=== PATIENT | female | born 1945 | race Caucasian/White ===

== ENCOUNTER 2021-01-11 07:56 | Observation (INO) ==
[2021-01-11] MEDS ORDERED: ACETAMINOPHEN 500 MG TAB PO STA (08:07)
[2021-01-11] MEDS ORDERED: oxyCODONE HCL IR 5 MG TAB (IMMEDIATE RELEASE) PO STA (08:07)
--- NOTE | 2021-01-11 08:15 | Emergency Department Note ---
Impression & Plan Fall, Compression fracture of L2 ED Provider Note NAME: BUD TAVERAS AGE: 75 SEX: F : 1945 ARRIVES VIA: Ambulance INFORMANT: Patient, ED PROVIDER(S): Cristino Brown MD CHIEF COMPLAINT: Fall, back pain HPI: This 75-year-old female who reports to the emergency department after losing her balance at home and falling to the ground. The patient reports she fell on her buttocks is complaining of low back pain as well as left hip pain. The patient reports she has a left hip replacement surgery that was performed in [place]. The patient's reports that he had to pick her up off the ground but that she did not hit her head. EMS reports that they did not give the patient anything but brought her to the emergency department. The patient describes the pain as an aching sensation with radiation into her hip. She reports standing on the hip makes the pain much worse however rest makes the pain better. She reports taking CBD oil prior to arrival for the pain with some improvement in her pain. ROS: See above HPI for pertinent positives & negatives. A total of 10 systems reviewed and were otherwise negative. PAST MEDICAL HISTORY: See Below PAST SURGICAL HISTORY: See Below FAMILY HISTORY: See Below SOCIAL HISTORY: See Below HOME MEDICATIONS: See Below ALLERGIES: See Below VITALS: See Below PHYSICAL EXAMINATION: VITAL SIGNS - Vital signs and nursing notes were reviewed. GENERAL - 75-year-old female appearing stated age who is in no acute distress. Communicates well with provider and answers questions appropriately. SKIN - Without rashes. HEAD - NC/AT. EYES - PERRL with EOMI bilaterally. Sclera anicteric. Palpebral conjunctiva pink and moist with no injection noted. EARS - No deformities of external structures noted on gross examination bilaterally. NOSE - Midline and without cyanosis. No epistaxis or purulent drainage noted. Septum midline without deviation or septal hematoma noted. MOUTH/OROPHARYNX - Without perioral cyanosis. Buccal mucosa pink and moist and without leukoplakia. Tongue midline with equal elevation of palate bilaterally. No tonsillar hypertrophy, erythema, or exudates noted. NECK - Neck with FROM. Supple to palpation. No nuchal rigidity. LUNGS - Chest wall symmetric without accessory muscle use, intercostals ret ractions, or central cyanosis. Normal vesicular breath sounds CTA B/L. No wheezes, rales, or rhonchi appreciated. CARDIAC - RRR with S1/S2. No murmur, rubs, or gallops appreciated. ABDOMEN - Abdominal contour without pulsations or visible masses. BS normoactive all four quadrants. No tenderness, palpable masses, hepatosplenomegaly, or ascites noted. EXTREMITIES - No clubbing or peripheral cyanosis. No pretibial edema present. +3/5 radial, posterior tibial, and dorsalis pedis pulses palpated throughout. +5/5 strength noted in UE/LE bilaterally. NEUROLOGIC - Cranial nerves II through XII grossly intact. Sensory intact to light touch throughout. Patellar reflexes +2/4. PSYCH - A&Ox3 and cooperates fully with examiner. Pt is very pleasant and interacts well with examiner. MEDICAL DECISION MAKING: Patient was seen and evaluated as above in room A12. Review was performed of nursing notes and vital signs. I did review pertinent previous visits and patient history. After obtaining a thorough history and physical examination the above work up was performed. This 75-year-old female who presents emergency department complaining of hip and back pain after a fall. Using shared medical decision making with the patient and her decision was made to send the patient for CAT scan of the lower spine as well as the pelvis. She was given oxycodone as well as Tylenol here for the pain. Repeat examination revealed improvement the patient's symptoms. However on attempting to get the patient up to ambulate her she had increasing pain in the back. They are requesting admission and perhaps a rehabilitation stay. I did discuss the case with case management who noted that the patient will need to be admitted to get her into rehab. I also did discuss the case with the orthopedic surgeon who was kind enough to see her the next day. I will note the patient does not have an elevation in her white blood cell count has a normal renal profile. She was discussed with the hospitalist service who did agree to meet the patient An order was placed for continuous cardiac monitoring. The monitor shows a rate of 54 with Sinus tamara rhythm. The patient was evaluated during a period of high volume and high acuity during the global COVID-19 pandemic, and that diagnosis was suspected/considered upon their initial presentation. Their evaluation, treatment and testing was consistent with current guidelines for patients who present with complaints or symptoms that may be related to COVID-19. Patient was seen while provider was wearing PPE. Triage Nursing notes reviewed. Prior medical records reviewed Vital Signs: reviewed and remarkable for no significant abnormalities Differential diagnosis: Fracture, subluxation, dislocation, contusion, ligamentous injury, neurovascular, compartment syndrome, rhabdomyolysis, as well as other pathologies. ER treatment provided: See below Diagnostics interpreted by me: ECG: EKG shows a sinus bradycardia possible left atrial enlargement left axis deviation no ST elevation or depression QTC is 427 ventricular rate is 48 no previous EKG available. Laboratory studies: As stated above and show below. Imaging studies: See below Consultation(s): ortho spine Int Medicine Past Med/Surg History Medical History (Updated 01/12/21 @ 16:37 by Cristino Brown MD) Anxiety Chronic back pain Degenerative disc disease GERD (gastroesophageal reflux disease) Hypothyroidism Irregular heart rate reason metoprolol Osteoarthritis Sleep apnea doesnt use CPAP as ordered Spinal stenosis Surgical History History of cardiac cath 2013 @ [place]--no stents History of section History of colonoscopy History of dilatation and curettage History of lumpectomy of right breast benign History of open reduction and internal fixation (ORIF) procedure clavicle fx--hardware removed History of total left hip replacement History of wisdom tooth extraction Family History Other Family history not known due to adoption Social History Smoking Status: Never smoker Second Hand Exposure: No; Do You Dip or Chew Tobacco: No; Tobacco Cessation Education Requested by Patient: No Hx Alcohol Use: Yes Alcohol type: wine and hard liquor Hx Substance Use: No Preferred Language: Hungarian Communication Ability: Effective Gauger Chief Delivery Required: No Beliefs That Will Affect Care: Episcopalian Episcopalian Beliefs: Hindu Current Living Situation: Spouse Other Information That Helps Us Care for You: No Feels Safe at Home: Yes Safety Concerns: Feels Safe At This Time Assistive Devices: Walker Allergies Allergies Allergy/AdvReac Type Severity Reaction Status Date / Time No Known Allergies Allergy Verified 01/11/21 08:55 Home Meds Home Medications Medication Instructions Recorded Confirmed acetaminophen 500 mg tablet 500 mg PO BID PRN 01/19/19 01/11/21 (Acetaminophen Extra Strength) ascorbic acid (vitamin C) 1,000 mg 1 g PO QAM 01/19/19 01/11/21 tablet (Vitamin C) cyclosporine 0.05 % eye drops in a 1 drp OPB AMPM 01/19/19 01/11/21 dropperette (Restasis) levothyroxine 100 mcg tablet 100 mcg PO QAM 01/19/19 01/11/21 loratadine 10 mg tablet 10 mg PO PM 01/19/19 01/11/21 metoprolol succinate 25 mg 12.5 mg PO PM 01/19/19 01/11/21 tablet,extended release 24 hr montelukast 10 mg tablet 10 mg PO PM 01/19/19 01/11/21 omega-3 360 bk-ofz-dej-fish oil 1 cap PO PM 01/19/19 01/11/21 1,200 mg capsule,delayed release (Fish Oil) sertraline 50 mg tablet 50 mg PO PM 01/19/19 01/11/21 vitamin B complex-folic acid 0.4 1 tab PO QAM 01/19/19 01/11/21 mg tablet (Super B Maxi Complex) omeprazole 10 mg capsule,delayed 10 mg PO QAM 01/30/19 01/11/21 release acetaminophen 650 mg 650 mg PO Q8H PRN 01/11/21 01/11/21 tablet,extended release (Tylenol 8 Hour) albuterol sulfate 90 mcg/actuation 1 puff INHALATION Q4H PRN 01/11/21 01/11/21 aerosol inhaler calcium carbonate 600 mg (1,500 1 cap PO QAM 01/11/21 01/11/21 mg)-vitamin D3 500 unit capsule (Calcium 600 with Vitamin D3) celecoxib 200 mg capsule 200 mg PO PM 01/11/21 01/11/21 coQ10 (ubiquinol) 200 mg capsule 200 mg PO PM 01/11/21 01/11/21 famotidine 20 mg tablet 20 mg PO QAM 01/11/21 01/11/21 magnesium 250 mg tablet 250 mg PO PM 01/11/21 01/11/21 mometasone 50 mcg/actuation nasal 2 spray INTRANASAL DAILY 01/11/21 01/11/21 spray naproxen sodium 220 mg tablet 220 mg PO PM PRN 01/11/21 01/11/21 (Aleve) turmeric 450 mg-turmeric root 1 cap PO QAM 01/11/21 01/11/21 extract 50 mg capsule valacyclovir 1 gram tablet 1,000 mg PO DIRECTED PRN 01/11/21 01/11/21 zinc 50 mg tablet 50 mg PO QAM 01/11/21 01/11/21 Results & Data (ED) Vital Signs Vital Signs - 24 hr 01/11/21 08:00 Temperature 36.8 C Temperature Source Oral Pulse Rate 54 L Respiratory Rate 16 Respiratory Effort / Characteristics Non-Labored Spontaneous Respiratory Depth Normal Respiratory Pattern Regular Blood Pressure 176/71 H Blood Pressure Mean 106 Blood Pressure Position Lying Pulse Oximetry 95 Oxygen Delivery Method Room Air Sepsis Recent Fever Within 48 Hours No Sepsis New/Unexplained Change in Mental Status No Sepsis Action Taken by Nursing No Action Required Home Medications Current Medication List: was personally reviewed by me Laboratory Data Attestation: I reviewed the patient's lab results. Result diagrams: 01/11/21 10:59 01/11/21 10:59 Administered Medications Acetaminophen (Acetaminophen 325 Mg Tab) 650 mg PO QID [facility] Stop: 02/10/21 12:59 Last Admin: 01/12/21 13:08 Dose: 650 mg Documented by: [id number] Admin: 01/12/21 08:39 Dose: 650 mg Documented by: [id number] Admin: 01/11/21 21:38 Dose: 650 mg Documented by: [id number] Admin: 01/11/21 17:01 Dose: 650 mg Documented by: [id number] Admin: 01/11/21 14:09 Dose: Not Given Documented by: [id number] Ascorbic Acid (Ascorbic Acid 500 Mg Tab) [facility] [place] Stop: 02/11/21 08:59 Last Admin: 01/12/21 08:39 Dose: 1,000 mg Documented by: [id number] Celecoxib (Celebrex 200 Mg Cap) 200 mg PO PM [facility] Stop: 02/10/21 20:59 Last Admin: 01/11/21 21:38 Dose: 200 mg Documented by: [id number] Diazepam (Diazepam 2 Mg Tablet) 2 mg PO TID PRN PRN Reason: Moderate pain Stop: 02/10/21 13:48 Last Admin: 01/12/21 03:44 Dose: 2 mg Documented by: [id number] Enoxaparin Sodium (Enoxaparin Inj 40 Mg/0.4 Ml Syr) 40 mg SQ QAM [facility] Stop: 02/11/21 08:59 Last Admin: 01/12/21 08:40 Dose: Not Given Documented by: [id number] Famotidine (Famotidine 20 Mg Tab) 20 mg PO QAM [facility] Stop: 02/10/21 13:48 Last Admin: 01/11/21 21:38 Dose: 20 mg Documented by: [id number] Admin: 01/11/21 16:28 Dose: Not Given Documented by: [id number] Fish Oil (Champion-3 (Purified Fish Oil) 1 Gm Cap) 1 gm PO PM [facility] Stop: 02/10/21 20:59 Last Admin: 01/11/21 21:38 Dose: 1 gm Documented by: [id number] Fluticasone Propionate (Fluticasone Propionate Na Spr 16 Gm Btl) 2 sprays NA DAILY [facility]; Protocol Stop: 02/11/21 08:59 Last Admin: 01/12/21 08:38 Dose: 2 sprays Documented by: [id number] Levothyroxine Sodium (Levothyroxine Sodium 100 Mcg Tablet) 100 mcg PO DAILYBB [facility] Stop: 02/11/21 06:29 Last Admin: 01/12/21 05:54 Dose: 100 mcg Documented by: [id number] Lidocaine (Lidocaine 5% 1 Patch) 1 patch TD [facility] Stop: 02/10/21 10:44 Last Admin: 01/12/21 09:09 Dose: 1 patch Documented by: [id number] Admin: 01/11/21 11:15 Dose: 1 patch Documented by: [id number] Loratadine (Loratadine 10 Mg Tab) 10 mg PO PM [facility] Stop: 02/10/21 20:59 Last Admin: 01/11/21 19:34 Dose: 10 mg Documented by: [id number] Magnesium Oxide (Magnesium Oxide 400 Mg Tab) 400 mg PO PM [facility]; Protocol Stop: 02/10/21 20:59 Last Admin: 01/11/21 21:38 Dose: 400 mg Documented by: [id number] Miscellaneous (Remove Lidoderm Patch) 1 ea N/A DAILY@2100 [facility] Stop: 02/10/21 20:59 Last Admin: 01/11/21 21:40 Dose: 1 ea Documented by: [id number] Miscellaneous (Restasis : Order Awaiting Action) 1 ea N/A QS [facility] Stop: 02/10/21 15:59 Last Admin: 01/12/21 15:52 Dose: Not Given Documented by: [id number] Admin: 01/12/21 08:30 Dose: Not Given Documented by: [id number] Admin: 01/11/21 23:37 Dose: Not Given Documented by: [id number] Admin: 01/11/21 16:58 Dose: Not Given Documented by: [id number] Montelukast Sodium (Montelukast Sodium 10 Mg Tablet) 10 mg PO PM [facility] Stop: 02/10/21 20:59 Last Admin: 01/11/21 19:34 Dose: 10 mg Documented by: [id number] Multivitamins/Minerals (Calcium 600mg + Vit D 400 Iu Tab) 1 tab PO QAM [facility] Stop: 02/11/21 08:59 Last Admin: 01/12/21 08:39 Dose: 1 tab Documented by: [id number] Oxycodone HCl (Oxycodone Hcl Ir 5 Mg Tab (Immediate Release)) 5 mg PO Q4H PRN PRN Reason: severe pain Stop: 01/25/21 13:48 Last Admin: 01/12/21 08:40 Dose: 5 mg Documented by: [id number] Admin: 01/11/21 18:28 Dose: 5 mg Documented by: [id number] Admin: 01/11/21 14:35 Dose: 5 mg Documented by: [id number] Pantoprazole Sodium (Pantoprazole 40 Mg Tab) 40 mg PO QAM [facility] Stop: 02/11/21 08:59 Last Admin: 01/12/21 05:54 Dose: 40 mg Documented by: [id number] Sertraline HCl (Sertraline Hcl 50 Mg Tablet) 50 mg PO PM [facility] Stop: 02/10/21 20:59 Last Admin: 01/11/21 19:34 Dose: 50 mg Documented by: [id number] Vitamin D (Cholecalciferol 1,000 Units 25 Mcg Tab) 2,000 units PO QAM [facility] Stop: 02/10/21 13:48 Last Admin: 01/12/21 08:39 Dose: 2,000 units Documented by: [id number] Admin: 01/11/21 16:28 Dose: Not Given Documented by: [id number] Discontinued Medications Acetaminophen (Acetaminophen 500 Mg Tab) 1,000 mg PO NOW STA Stop: 01/11/21 08:08 Last Admin: 01/11/21 08:15 Dose: 1,000 mg Documented by: [id number] Sodium Chloride (Nss 1000ml) 1,000 mls @ 80 mls/hr IV .[id number] [facility] Stop: 01/12/21 00:59 Last Infusion: 01/12/21 03:06 Dose: 0 mls/hr Documented by: [id number] Admin: 01/11/21 14:36 Dose: 80 mls/hr Documented by: [id number] Ondansetron HCl (Ondansetron Inj 2 Mg/Ml 2 Ml Vial) 4 mg IV NOW STA Stop: 01/11/21 10:34 Last Admin: 01/11/21 14:07 Dose: Not Given Documented by: [id number] Oxycodone HCl (Oxycodone Hcl Ir 5 Mg Tab (Immediate Release)) 5 mg PO NOW STA Stop: 01/11/21 08:08 Last Admin: 01/11/21 08:15 Dose: 5 mg Documented by: [id number] Imaging Data Radiologist's Impression: Lumbar Spine CT 01/11/21 08:[address] DOSE: HISTORY: Pt c/o low back pain s/p fall TECHNIQUE: Multiaxial CT images of the lumbar spine were performed and reformatted in the sagittal and coronal plane without the use of contrast. A dose lowering technique was utilized adhering to the principles of ALARA. COMPARISON: None. FINDINGS: There is an acute mild superior endplate compression fracture at L2 demonstrating up to 10% loss of height anteriorly. No associated retropulsion. No additional fractures within the lumbar spine. There is moderate to severe disc space narrowing at L3-L4. There are mild facet degenerative changes within the lower lumbar spine. The sacrum appears intact. Mild central canal narrowing at L4-L5 due to broad-based posterior disc bulge. Mild paravertebral edema at the L2 level secondary to the acute fracture. IMPRESSION: An acute mild superior endplate compression fracture at L2. No associated retropulsion. ACT 112: Negative or not required by law. Electronically signed by: Franck Campos M.D. 01/11/2021 9:[address] 01/11/21 08:07 CT pelvis wo con CLINICAL HISTORY: Left hip pain following fall. COMPARISON STUDY: No previous studies for comparison. TECHNIQUE: Axial images of the pelvis and hips were obtained without IV contrast. Sagittal and coronal reconstructions were viewed. Automated exposure control was utilized for the study. A dose lowering technique was utilized adhering to the principles of ALARA. FINDINGS: Alignment of the left hip arthroplasty is anatomic. There is no periprosthetic fracture. No acute fracture within the pelvis or hips is identified. No osseous lesion is noted. The sacroiliac joints and symphysis pubis are intact. No pelvic hematoma is noted. There is no pelvic lymphadenopathy. IMPRESSION: 1. No acute fracture within the pelvis or hips. 2. Intact left hip arthroplasty. No periprosthetic fracture. ACT 112: Negative or not required by law. Electronically signed by: Lyle Vargas M.D. 01/11/2021 9:52 AM Chest X-Ray 01/11/21 10:28 XR chest 1V portable HISTORY: Fall. weakness COMPARISON: None. FINDINGS: The cardiac silhouette is mildly enlarged. No focal lung consolidations to suggest pneumonia. No evidence for pulmonary edema. No pleural effusions. No pneumothorax. Mild diffuse interstitial thickening which is likely chronic. IMPRESSION: Mild cardiomegaly and mild chronic interstitial thickening. No acute process within the chest. ACT 112: Negative or not required by law. Electronically signed by: Franck Campos M.D. 01/11/2021 11:04 AM Discharge Plan Visit Data Chief Complaint: Fall Stated Complaint: FALL, LOWER BACK, BUTTOCKS & WRIST PAIN ED Provider: Cristino Brown Discharge Problem: Fall, Compression fracture of L2 Patient Disposition: Admitted As Inpatient Discharge Instructions Interventions: ED Discharge Assessment Last Done: 01/11/21 13:48 Discharge Problem: Fall Qualifiers: Encounter type: initial encounter Qualified Code(s): W19.XXXA - Unspecified fall, initial encounter Compression fracture of L2 Qualifiers: Encounter type: initial encounter Qualified Code(s): S32.020A - Wedge compression fracture of second lumbar vertebra, initial encounter for closed fracture
--- NOTE | 2021-01-11 09:30 | CT Scan Report ---
LUMBAR SPINE CT CT DOSE: HISTORY: Pt c/o low back pain s/p fall TECHNIQUE: Multiaxial CT images of the lumbar spine were performed and reformatted in the sagittal an d coronal plane without the use of contrast. A dose lowering technique was utilized adhering to the principles of ALARA. COMPARISON: None. FINDINGS: There is an acute mild superior endplate compression fracture at L2 demonstrating up to 10% loss of height anteriorly. No associated retropulsion. No additional fractures within the lumbar spi ne. There is moderate to severe disc space narrowing at L3-L4. There are mild facet degenerative luis ges within the lower lumbar spine. The sacrum appears intact. Mild central canal narrowing at L4-L5 d ue to broad-based posterior disc bulge. Mild paravertebral edema at the L2 level secondary to the acu te fracture. IMPRESSION: An acute mild superior endplate compression fracture at L2. No associated retropulsion. ACT 112: Negative or not required by law. Electronically signed by: Franck Campos M.D. 01/11/2021 9:28 AM
--- NOTE | 2021-01-11 09:53 | CT Scan Report ---
CT pelvis wo con CLINICAL HISTORY: Left hip pain following fall. COMPARISON STUDY: No previous studies for comparison. TECHNIQUE: Axial images of the pelvis and hips were obtained without IV contrast. Sagittal and ochoa l reconstructions were viewed. Automated exposure control was utilized for the study. A dose lowerin g technique was utilized adhering to the principles of ALARA. FINDINGS: Alignment of the left hip arthroplasty is anatomic. There is no periprosthetic fracture. No acute fracture within the pelvis or hips is identified. No osseous lesion is noted. The sacroiliac j oints and symphysis pubis are intact. No pelvic hematoma is noted. There is no pelvic lymphadenopathy . IMPRESSION: 1. No acute fracture within the pelvis or hips. 2. Intact left hip arthroplasty. No periprosthetic fracture. ACT 112: Negative or not required by law. Electronically signed by: Lyle Vargas M.D. 01/11/2021 9:52 AM
[2021-01-11] MEDS ORDERED: HYDROmorphone INJ 0.5 MG/0.5 ML SYR IV PRN (10:33)
[2021-01-11] MEDS ORDERED: ONDANSETRON INJ 2 MG/ML 2 ML VIAL IV STA (10:33)
--- NOTE | 2021-01-11 10:48 | History & Physical Report ---
Date of Service January 11, 2021 Assessment & Plan (1) Compression fracture of L2: (2) Fall: (3) Ambulatory dysfunction: (4) Lumbar spinal stenosis: Plan: This is a 75-year-old female who has significant past medical history of hypothyroidism, depression with anxiety, lumbar spinal stenosis, GERD, asthma, allergic rhinitis who presents to ED after sustaining fall at home. She states she lost her balance and fell to the ground. CT lumbar spine reveals an acute mild superior endplate compression fracture at L2 up to 10% loss of height anteriorly with mild paravertebral edema. Also noted on CT was mild central canal narrowing at L4-L5 due to broad-based posterior disc bulge. Pelvic CT reveals intact left hip replacement. Admit to medical Consult orthopedic spine Dr. Anderson Likely conservative management Consult PT/OT Consult case management to consider possible rehab Continue Celebrex for anti-inflammatory effect -patient takes this for arthritis which is currently much improved as she did not do well with other NSAIDs including ibuprofen Schedule acetaminophen 650 mg 4 times daily Oxycodone 5 mg every 4 hours as needed for severe pain; Valium 2 mg 3 times daily as needed for moderate pain Ice 3 times a day Lidocaine patch ordered (5) Sinus bradycardia: Plan: Patient is on 12.5 mg of metoprolol succinate She is currently asymptomatic Hold parameters in place (6) Hypothyroidism: Plan: Continue Synthroid (7) GERD (gastroesophageal reflux disease): Plan: Continue PPI and H2 freddy Dispo: Medical, consider rehab if ambulatory dysfunction persist despite pain control PCP: Pankaj FULL CODE Patient was seen and examined in collaboration with Dr. Alvarado, please see addendum History of Present Illness Chief Complaint: Fall prior to arrival Primary Care Provider: Omar Lira DO This is a 75-year-old female who has significant past medical history of hypothyroidism, depression with anxiety, lumbar spinal stenosis, GERD, asthma, allergic rhinitis who presents to ED after sustaining fall at home. She states she lost her balance and fell to the ground. She did not lose consciousness or hit her head. She reports falling on her buttocks and is complaining of low back and left hip pain. was unable to pick patient up off the ground and therefore EMS was summoned. She describes the pain as an ache with radiation to her hip. She denies any numbness or tingling or radicular symptoms. She did try CBD oil and ice prior to arrival with mild improvement of pain. Pain is improved at rest and made worse with standing. She denies any lightheadedness, dizziness, diaphoresis, nausea or palpitations prior to the fall. She further denies any recent fever, chills, sweats, chest pain, shortness with, cough, or symptoms, nausea, vomiting, abdominal pain. She denies any change in her bowel or urinary habits. Patient resides in [place] during the summer months but spends fall and aparicio between [place] and [place]. Her main residence is [place]. She does have a prior history of left hip replacement that was performed in [place]. In ED patient remained hemodynamically stable. CT of lumbar spine revealed an acute mild superior endplate compression fracture at L2 of approximately 10% loss of height anteriorly. Also noted on CT was mild central canal narrowing at L4-L5 due to a broad-based disc bulge. Mild acute paravertebral edema at the L2 level secondary to compression acute fracture but no associated retropulsion. Pelvis CT revealed an intact left hip arthroplasty with no periprosthetic fracture. No other acute abnormality in the hip. Allergies Allergy/AdvReac Type Severity Reaction Status Date / Time No Known Allergies Allergy Verified 01/11/21 08:55 Home Medications Medication Instructions Recorded Confirmed Type acetaminophen 500 mg tablet 500 mg PO BID PRN 01/19/19 01/11/21 History (Acetaminophen Extra Strength) ascorbic acid (vitamin C) 1,000 mg 1 g PO QAM 01/19/19 01/11/21 History tablet (Vitamin C) cyclosporine 0.05 % eye drops in a 1 drp OPB AMPM 01/19/19 01/11/21 History dropperette (Restasis) levothyroxine 100 mcg tablet 100 mcg PO QAM 01/19/19 01/11/21 History loratadine 10 mg tablet 10 mg PO PM 01/19/19 01/11/21 History metoprolol succinate 25 mg 12.5 mg PO PM 01/19/19 01/11/21 History tablet,extended release 24 hr montelukast 10 mg tablet 10 mg PO PM 01/19/19 01/11/21 History omega-3 360 rq-osu-rmo-fish oil 1 cap PO PM 01/19/19 01/11/21 History 1,200 mg capsule,delayed release (Fish Oil) sertraline 50 mg tablet 50 mg PO PM 01/19/19 01/11/21 History vitamin B complex-folic acid 0.4 1 tab PO QAM 01/19/19 01/11/21 History mg tablet (Super B Maxi Complex) omeprazole 10 mg capsule,delayed 10 mg PO QAM 01/30/19 01/11/21 History release acetaminophen 650 mg 650 mg PO Q8H PRN 01/11/21 01/11/21 History tablet,extended release (Tylenol 8 Hour) albuterol sulfate 90 mcg/actuation 1 puff INHALATION Q4H PRN 01/11/21 01/11/21 History aerosol inhaler calcium carbonate 600 mg (1,500 1 cap PO QAM 01/11/21 01/11/21 History mg)-vitamin D3 500 unit capsule (Calcium 600 with Vitamin D3) celecoxib 200 mg capsule 200 mg PO PM 01/11/21 01/11/21 History coQ10 (ubiquinol) 200 mg capsule 200 mg PO PM 01/11/21 01/11/21 History famotidine 20 mg tablet 20 mg PO QAM 01/11/21 01/11/21 History magnesium 250 mg tablet 250 mg PO PM 01/11/21 01/11/21 History mometasone 50 mcg/actuation nasal 2 spray INTRANASAL DAILY 01/11/21 01/11/21 History spray naproxen sodium 220 mg tablet 220 mg PO PM PRN 01/11/21 01/11/21 History (Aleve) turmeric 450 mg-turmeric root 1 cap PO QAM 01/11/21 01/11/21 History extract 50 mg capsule valacyclovir 1 gram tablet 1,000 mg PO DIRECTED PRN 01/11/21 01/11/21 History zinc 50 mg tablet 50 mg PO QAM 01/11/21 01/11/21 History oxycodone 5 mg tablet 5 mg PO Q12H PRN #10 tab 01/14/21 Rx Past Med/Surg History Medical History (Updated 01/15/21 @ 00:09 by Nicholas Webster) Anxiety Chronic back pain Compression fracture of L2 Degenerative disc disease Irregular heart rate reason metoprolol Osteoarthritis Sleep apnea doesnt use CPAP as ordered Spinal stenosis Surgical History History of cardiac cath 2013 @ [place]--no stents History of section History of colonoscopy History of dilatation and curettage History of lumpectomy of right breast benign History of open reduction and internal fixation (ORIF) procedure clavicle fx--hardware removed History of total left hip replacement History of wisdom tooth extraction Family History Other Family history not known due to adoption Social History Smoking Status: Never smoker Second Hand Exposure: No; Do You Dip or Chew Tobacco: No; Tobacco Cessation Education Requested by Patient: No Hx Alcohol Use: Yes Alcohol type: wine and hard liquor Hx Substance Use: No Preferred Language: Italian Communication Ability: Effective Hotbed Operator Required: No Beliefs That Will Affect Care: Protestant Protestant Beliefs: Rastafari Current Living Situation: Spouse Other Information That Helps Us Care for You: No Feels Safe at Home: Yes Safety Concerns: Feels Safe At This Time Assistive Devices: None and Brace/Splint/Immobilizer Review of Systems Review of Systems: All systems reviewed & are unremarkable except as noted in HPI & below Physical Exam Physical Exam: Constitutional: WD/WN, F, vitals as above, NAD, sitting up in bed, pleasant, conversing easily Head: Normocephalic, Atraumatic Eyes: PERRL, conjunctivae normal, anicteric sclerae ENMT: external ear and nose normal, oropharynx normal Neck: trachea midline, no thyromegaly normal visual inspection Respiratory: normal respiratory effort, lungs clear to auscultation, no wheeze, rales, rhonchi. Normal insp/exp effort, no accessory muscle use Cardiovascular: RRR, no murmur, no edema Vessels: no JVD or carotid bruit Chest: normal inspection of chest Abdomen: normal bowel sounds, soft, nontender, no hepatosplenomegaly Musculoskeletal: no cyanosis or clubbing, extremities motor strength 5/5 , pain to low back with straight leg raise b/l and plantar flexion of feet. pain to palpation of vertebral process of lower back Skin: no rashes, warm and dry normal turgor Neurologic: PERRL, EOMI, accommodation nl, no face palsy, no dysarthria CN's II-XI intact bilaterally and moves all extremities Psychiatric: A+Ox3, euthymic affect Lymphatic: no cervical or axillary lymphadenopathy : deferred Results & Data Results & Data ([facility]) Vital Signs (Past 12 Hours) Vital Signs Temp Pulse Pulse Resp BP BP Pulse Ox 01/11/21 08:56 52 L 16 130/70 92 01/11/21 08:00 36.8 C 54 L 16 176/71 H 95 Laboratory Results Short CBC 01/11/21 01/11/21 Range/Units 10:59 10:59 WBC 7.64 (4.8-10.8) K/uL Hgb 14.3 (12.0-16.0) g/dL Hct 43.5 (37-47) % Plt Count 242 (130-400) K/uL BUN 24 H (7-18) mg/dl BMP 01/11/21 10:59 Sodium 142 Potassium 4.0 Chloride 110 H Carbon Dioxide 32 BUN 24 H Creatinine 0.74 Glucose 85 Calcium 8.9 Liver Function 01/11/21 Range/Units 10:59 Total Bilirubin 0.7 (0.2-1) mg/dl AST 21 (15-37) U/L ALT 23 (12-78) U/L Alkaline Phosphatase 64 (45-117) U/L Albumin 3.6 (3.4-5.0) gm/dl Diagnostic Findings Lumbar Spine CT 01/11/21 08:[address] DOSE: HISTORY: Pt c/o low back pain s/p fall TECHNIQUE: Multiaxial CT images of the lumbar spine were performed and reformatted in the sagittal and coronal plane without the use of contrast. A dose lowering technique was utilized adhering to the principles of ALARA. COMPARISON: None. FINDINGS: There is an acute mild superior endplate compression fracture at L2 demonstrating up to 10% loss of height anteriorly. No associated retropulsion. No additional fractures within the lumbar spine. There is moderate to severe disc space narrowing at L3-L4. There are mild facet degenerative changes within the lower lumbar spine. The sacrum appears intact. Mild central canal narrowing at L4-L5 due to broad-based posterior disc bulge. Mild paravertebral edema at the L2 level secondary to the acute fracture. IMPRESSION: An acute mild superior endplate compression fracture at L2. No associated retropulsion. ACT 112: Negative or not required by law. Electronically signed by: Franck Campos M.D. 01/11/2021 9:[address] 01/11/21 08:07 CT pelvis wo con CLINICAL HISTORY: Left hip pain following fall. COMPARISON STUDY: No previous studies for comparison. TECHNIQUE: Axial images of the pelvis and hips were obtained without IV contrast. Sagittal and coronal reconstructions were viewed. Automated exposure control was utilized for the study. A dose lowering technique was utilized adhering to the principles of ALARA. FINDINGS: Alignment of the left hip arthroplasty is anatomic. There is no periprosthetic fracture. No acute fracture within the pelvis or hips is identified. No osseous lesion is noted. The sacroiliac joints and symphysis pubis are intact. No pelvic hematoma is noted. There is no pelvic lymphadenopath y. IMPRESSION: 1. No acute fracture within the pelvis or hips. 2. Intact left hip arthroplasty. No periprosthetic fracture. ACT 112: Negative or not required by law. Electronically signed by: Lyle Vargas M.D. 01/11/2021 9:52 AM Medications Administered Medication List Discontinued Medications Acetaminophen (Acetaminophen 500 Mg Tab) 1,000 mg PO NOW STA Stop: 01/11/21 08:08 Last Admin: 01/11/21 08:15 Dose: 1,000 mg Documented by: [id number] Oxycodone HCl (Oxycodone Hcl Ir 5 Mg Tab (Immediate Release)) 5 mg PO NOW STA Stop: 01/11/21 08:08 Last Admin: 01/11/21 08:15 Dose: 5 mg Documented by: [id number] ECG Rate (beats per minute): 48 Rhythm: sinus bradycardia COVID-19 Results Results COVID-19 Adm Lab Results: RBC 4.51 M/uL (4.2-5.4) 01/11/21 WBC 7.64 K/uL (4.8-10.8) 01/11/21 Hgb 14.3 g/dL (12.0-16.0) 01/11/21 Hct 43.5 % (37-47) 01/11/21 Plt Count 242 K/uL (130-400) 01/11/21 Neutrophils (%) (Auto) 79.6 % 01/11/21 Lymphocytes (%) (Auto) 12.2 % 01/11/21 Monocytes # (Auto) 0.51 K/uL (0.11-0.59) 01/11/21 Eosinophils # (Auto) 0.07 K/uL (0-0.5) 01/11/21 Immature Granulocyte % (Auto) 0.3 % 01/11/21 Neutrophils # (Auto) 6.09 K/uL (1.4-6.5) 01/11/21 Lymphocytes # (Auto) 0.93 K/uL (1.2-3.4) L 01/11/21 Monocytes # (Auto) 0.51 K/uL (0.11-0.59) 01/11/21 Eosinophils # (Auto) 0.07 K/uL (0-0.5) 01/11/21 Basophils # (Auto) 0.02 K/uL (0-0.2) 01/11/21 Immature Granulocyte # (Auto) 0.02 K/uL (0.00-0.02) 01/11/21 Na 142 mmol/L (136-145) 01/11/21 K 4.0 mmol/L (3.5-5.1) 01/11/21 Cl 110 mmol/L (98-107) H 01/11/21 CO2 32 mmol/L (21-32) 01/11/21 Anion Gap 0 (3-11) L 01/11/21 BUN 24 mg/dl (7-18) H 01/11/21 Creatinine 0.74 mg/dl (0.6-1.2) 01/11/21 BUN/Creatinine Ratio 32.0 (10-20) H 01/11/21 Glucose Level 85 mg/dl (70-99) 01/11/21 Ca 8.9 mg/dl (8.5-10.1) 01/11/21 Total Bilirubin 0.7 mg/dl (0.2-1) 01/11/21 AST/SGOT 21 U/L (15-37) 01/11/21 ALT/SGPT 23 U/L (12-78) 01/11/21 Alkaline Phosphatase 64 U/L (45-117) 01/11/21 Total Protein 6.9 gm/dl (6.4-8.2) 01/11/21 Albumin 3.6 gm/dl (3.4-5.0) 01/11/21 Globulin 3.3 gm/dl (2.5-4.0) 01/11/21 Albumin/Globulin Ratio 1.1 (0.9-2) 01/11/21 COVID-19 PCR NEGATIVE (Negative) 01/11/21 Chest X-Ray 01/11/21 Code Status & VTE Plan Code Status Full code VTE Prophylaxis Plan VTE Prophylaxis will be ordered: Yes Supervising Physician Co-Signing Physician Notes Pt was seen and examined. Agreed with Helga MORENO exam, assessment and Plan. 75-year-old female who has significant past medical history of hypothyroidism, depression with anxiety, lumbar spinal stenosis, GERD, asthma, allergic rhinitis present to the ER after sustaining fall at home. Pt said that she lost her balance and fell to the ground. She did not lose consciousness or hit her head. she said that she could not get up from the floor due to excruciate pain. had to call EMS. She said that she has been having excruciating pain mostly when sitting on her butt or when walking. Denies any lightheadedness, dizziness, diaphoresis, nausea, chills, sweats, chest pain, shortness with, co ugh, or symptoms, nausea, vomiting, abdominal pain or palpitations prior to the fall. CT of lumbar spine done in the ER revealed an acute mild superior endplate compression fracture at L2 of approximately 10% loss of height anteriorly; and mild central canal narrowing at L4-L5 due to a broad-based disc bulge. Mild acute paravertebral edema at the L2 level secondary to compression acute fracture but no associated retropulsion. Continue pain Control. Ortho Consult. PT/OT eval. Fall precaution. MD Christiano
--- NOTE | 2021-01-11 11:05 | XRay Report ---
XR chest 1V portable HISTORY: Fall. weakness COMPARISON: None. FINDINGS: The cardiac silhouette is mildly enlarged. No focal lung consolidations to suggest pneumoni a. No evidence for pulmonary edema. No pleural effusions. No pneumothorax. Mild diffuse interstitial thickening which is likely chronic. IMPRESSION: Mild cardiomegaly and mild chronic interstitial thickening. No acute process within the chest. ACT 112: Negative or not required by law. Electronically signed by: Franck Campos M.D. 01/11/2021 11:04 AM
[2021-01-11 11:08] LABS: Basophils # (auto) 0.02 K/uL (0-0.2); Basophils % (auto) 0.3 %; Eosinophils # (auto) 0.07 K/uL (0-0.5); Eosinophils % (auto) 0.9 %; Hematocrit (blood only) 43.5 % (37-47); Hemoglobin 14.3 g/dL (12.0-16.0); Immature Granulocytes # (auto) 0.02 K/uL (0.00-0.02); Immature Granulocytes % (auto) 0.3 %; Lymphocytes # (auto) 0.93 K/uL (1.2-3.4); Lymphocytes % (auto) 12.2 %; Mean Corpuscular Hemoglobin 31.7 pg (25-34); Mean Corpuscular Hgb Conc 32.9 g/dL (32-36); Mean Corpuscular Volume 96.5 fL (80-100); Monocytes # (auto) 0.51 K/uL (0.11-0.59); Monocytes % (auto) 6.7 %; Neutrophils # (auto) 6.09 K/uL (1.4-6.5); Neutrophils % (auto) 79.6 %; Platelet Count 242 K/uL (130-400); RDW Coefficient of Variation 13.3 % (11.5-14.5); RDW Standard Deviation 46.9 fL (36.4-46.3); Red Blood Count 4.51 M/uL (4.2-5.4); White Blood Count 7.64 K/uL (4.8-10.8)
[2021-01-11] MEDS: LIDOCAINE 5% 1 PATCH TD SCH (11:15)
[2021-01-11 11:27] LABS: Albumin Level 3.6 gm/dl (3.4-5.0); Calcium 8.9 mg/dl (8.5-10.1); Est GFR (African American) 91.2 ml/min; Est GFR (Non-African American) 78.7 ml/min
[2021-01-11 11:37] LABS: Albumin Globulin Ratio 1.1 (0.9-2); Bilirubin,Total 0.7 mg/dl (0.2-1); Globulin 3.3 gm/dl (2.5-4.0); Thyroid Stimulating Hormone 3.11 uIu/ml (0.300-4.500); Total Protein 6.9 gm/dl (6.4-8.2)
[2021-01-11] MEDS ORDERED: SODIUM CHLORIDE 0.9% 1000ML 1,000 ML IV SCH (12:30)
[2021-01-11 13:02] LABS: Appearance Urine Clear (Clear); Bacteria Urine Automated Negative (Negative); Bilirubin Urine Negative (Negative); Blood Urine Negative (Negative); Color Urine Yellow; Glucose Urine UA Negative (Negative); Ketones Urine Negative (Negative); Leukocyte Esterase Urine Trace (Negative); Nitrite Urine Negative (Negative); Protein Urine Negative (Negative); RBC Urine Automated 0-4 /hpf (0-4); Specific Gravity Urine 1.013 (1.000-1.030); Urobilinogen Urine Negative (Negative); pH Urine 7.5 (4.5-7.5)
[2021-01-11] MEDS ORDERED: MAGNESIUM HYDROXIDE SUSP 30 ML UDC PO PRN (13:49)
[2021-01-11] MEDS ORDERED: ACETAMINOPHEN 325 MG TAB PO PRN (13:49)
[2021-01-11] MEDS ORDERED: ONDANSETRON INJ 2 MG/ML 2 ML VIAL IV PRN (13:49)
[2021-01-11] MEDS ORDERED: diazePAM 2 MG TABLET PO PRN (13:49)
[2021-01-11] MEDS ORDERED: ALBUTEROL HFA 8 GM INHALER INH PRN (13:49)
[2021-01-11] MEDS ORDERED: ALUMINUM/MAGNESIUM SUSP 30 ML UDC PO PRN (13:49)
[2021-01-11] MEDS: ACETAMINOPHEN 325 MG TAB PO SCH ×3 (14:09→21:38)
[2021-01-11] MEDS: oxyCODONE HCL IR 5 MG TAB (IMMEDIATE RELEASE) PO PRN ×2 (14:35→18:28)
[2021-01-11] MEDS: FAMOTIDINE 20 MG TAB PO SCH ×2 (16:28→21:38)
[2021-01-11] MEDS: CHOLECALCIFEROL 1,000 UNITS 25 MCG TAB PO SCH (16:28)
--- NOTE | 2021-01-11 17:12 | Electrocardiogram Report ---
Test Reason : Blood Pressure : / mmHG Vent. Rate : 048 BPM Atrial Rate : 048 BPM P-R Int : 204 ms QRS Dur : 086 ms QT Int : 478 ms P-R-T Axes : 071 -32 054 degrees QTc Int : 427 ms Sinus bradycardia Possible Left atrial enlargement Left axis deviation Poor R wave progression, consider anterior MT vs. lead placement vs. LVH Abnormal ECG No previous ECGs available Confirmed by Manny Freeman ([id number]) on 01/11/2021 5:12:07 PM Referred By: REFERRED SELF Confirmed By:Jim Freeman
[2021-01-11] MEDS: SERTRALINE HCL 50 MG TABLET PO SCH (19:34)
[2021-01-11] MEDS: MONTELUKAST SODIUM 10 MG TABLET PO SCH (19:34)
[2021-01-11] MEDS: LORATADINE 10 MG TAB PO SCH (19:34)
[2021-01-11] MEDS ORDERED: PANTOprazole 40 MG TAB PO SCH (21:00)
[2021-01-11] MEDS ORDERED: NON-FORMULARY MEDICATION (Coq10 (Ubiquinol) 200 mg Capsule) PO SCH (21:00)
[2021-01-11] MEDS ORDERED: METOPROLOL SUCC 25MG EXT REL TAB PO SCH (21:00)
[2021-01-11] MEDS: CeleBREX 200 MG CAP PO SCH (21:38)
[2021-01-11] MEDS: MAGNESIUM OXIDE 400 MG TAB PO SCH (21:38)
[2021-01-11] MEDS: OMEGA-3 (PURIFIED FISH OIL) 1 GM CAP PO SCH (21:38)
[2021-01-12] MEDS: LEVOTHYROXINE SODIUM 100 MCG TABLET PO SCH (05:54)
[2021-01-12] MEDS: PANTOprazole 40 MG TAB PO SCH (05:54)
--- NOTE | 2021-01-12 08:04 | Orthopedic Consultation ---
Date of Consultation January 12, 2021 Assessment & Plan (1) Compression fracture of L2: CAT scan does demonstrate superior endplate fracture of L2 with evidence of spinal stenosis most impressive at L4-L5. This point her axial back symptoms seem to be controlled. I will order an LSO brace for her to wear when out of bed and ambulating. I discussed with her treatment plan of light activity lifting no more than 5 pounds using her brace when ambulating. If she fails to respond gutiérrez over the next several days and the pain continues or worsens she may ultimately be a candidate for kyphoplasty. I have discussed this procedure with her. Again I believe there is a 90% chance she will heal without any surgical intervention. History of Present Illness Reason for Consultation: L2 compression fracture Attending Physician: Jayson Alvarado MD History of Present Illness This is a very pleasant 75-year-old female that presents after a fall at home. She has sustained an L2 compression fracture. This morning she states her pain has improved. She was able to get in and out of bed yesterday and use the restroom with assistance. She denies any leg pain numbness or tingling to lower extremities. Again she is comfortable this morning upon our discussion. Allergies Allergy/AdvReac Type Severity Reaction Status Date / Time No Known Allergies Allergy Verified 01/11/21 08:55 Home Medications Medication Instructions Recorded Confirmed Type acetaminophen 500 mg tablet 500 mg PO BID PRN 01/19/19 01/11/21 History (Acetaminophen Extra Strength) ascorbic acid (vitamin C) 1,000 mg 1 g PO QAM 01/19/19 01/11/21 History tablet (Vitamin C) cyclosporine 0.05 % eye drops in a 1 drp OPB AMPM 01/19/19 01/11/21 History dropperette (Restasis) levothyroxine 100 mcg tablet 100 mcg PO QAM 01/19/19 01/11/21 History loratadine 10 mg tablet 10 mg PO PM 01/19/19 01/11/21 History metoprolol succinate 25 mg 12.5 mg PO PM 01/19/19 01/11/21 History tablet,extended release 24 hr montelukast 10 mg tablet 10 mg PO PM 01/19/19 01/11/21 History omega-3 360 zj-hvq-tgo-fish oil 1 cap PO PM 01/19/19 01/11/21 History 1,200 mg capsule,delayed release (Fish Oil) sertraline 50 mg tablet 50 mg PO PM 01/19/19 01/11/21 History vitamin B complex-folic acid 0.4 1 tab PO QAM 01/19/19 01/11/21 History mg tablet (Super B Maxi Complex) omeprazole 10 mg capsule,delayed 10 mg PO QAM 01/30/19 01/11/21 History release acetaminophen 650 mg 650 mg PO Q8H PRN 01/11/21 01/11/21 History tablet,extended release (Tylenol 8 Hour) albuterol sulfate 90 mcg/actuation 1 puff INHALATION Q4H PRN 01/11/21 01/11/21 History aerosol inhaler calcium carbonate 600 mg (1,500 1 cap PO QAM 01/11/21 01/11/21 History mg)-vitamin D3 500 unit capsule (Calcium 600 with Vitamin D3) celecoxib 200 mg capsule 200 mg PO PM 01/11/21 01/11/21 History coQ10 (ubiquinol) 200 mg capsule 200 mg PO PM 01/11/21 01/11/21 History famotidine 20 mg tablet 20 mg PO QAM 01/11/21 01/11/21 History magnesium 250 mg tablet 250 mg PO PM 01/11/21 01/11/21 History mometasone 50 mcg/actuation nasal 2 spray INTRANASAL DAILY 01/11/21 01/11/21 History spray naproxen sodium 220 mg tablet 220 mg PO PM PRN 01/11/21 01/11/21 History (Aleve) turmeric 450 mg-turmeric root 1 cap PO QAM 01/11/21 01/11/21 History extract 50 mg capsule valacyclovir 1 gram tablet 1,000 mg PO DIRECTED PRN 01/11/21 01/11/21 History zinc 50 mg tablet 50 mg PO QAM 01/11/21 01/11/21 History Patient History Medical History (Updated 01/11/21 @ 12:24 by Helga Tse PA-C) Anxiety Chronic back pain Degenerative disc disease GERD (gastroesophageal reflux disease) Hypothyroidism Irregular heart rate reason metoprolol Osteoarthritis Sleep apnea doesnt use CPAP as ordered Spinal stenosis Surgical History History of cardiac cath 2014 @ [place]--no stents History of section History of colonoscopy History of dilatation and curettage History of lumpectomy of right breast benign History of open reduction and internal fixation (ORIF) procedure clavicle fx--hardware removed History of total left hip replacement History of wisdom tooth extraction Family History Other Family history not known due to adoption Social History Smoking Status: Never smoker Second Hand Exposure: No; Do You Dip or Chew Tobacco: No; Tobacco Cessation Education Requested by Patient: No Hx Alcohol Use: Yes Alcohol type: wine and hard liquor Hx Substance Use: No Preferred Language: Niuean Communication Ability: Effective Propulsion Engineer Required: No Beliefs That Will Affect Care: Restoration Restoration Beliefs: Mu-ism Current Living Situation: Spouse Other Information That Helps Us Care for You: No Feels Safe at Home: Yes Safety Concerns: Feels Safe At This Time Assistive Devices: Walker Physical Exam Physical Exam: Patient appears comfortable. She has good strength testing to the lower extremities. Sensory symmetric and intact. Results & Data ([facility]) Vital Signs (Past 12 Hours) Vital Signs Temp Pulse Resp BP Pulse Ox 01/12/21 07:42 36.8 C 49 L 14 116/59 L 93 01/11/21 22:53 36.5 C 45 L 14 138/70 94
[2021-01-12] MEDS: FLUTICASONE PROPIONATE NA SPR 16 GM BTL SCH (08:38)
[2021-01-12] MEDS: CALCIUM 600MG + VIT D 400 IU TAB PO SCH (08:39)
[2021-01-12] MEDS: CHOLECALCIFEROL 1,000 UNITS 25 MCG TAB PO SCH (08:39)
[2021-01-12] MEDS: ASCORBIC ACID 500 MG TAB PO SCH (08:39)
[2021-01-12] MEDS: ACETAMINOPHEN 325 MG TAB PO SCH ×4 (08:39→22:09)
[2021-01-12] MEDS: oxyCODONE HCL IR 5 MG TAB (IMMEDIATE RELEASE) PO PRN ×2 (08:40→16:48)
[2021-01-12] MEDS: ENOXAPARIN INJ 40 MG/0.4 ML SYR SQ SCH (08:40)
[2021-01-12] MEDS ORDERED: LIDOCAINE 5% 1 PATCH TD SCH (09:00)
[2021-01-12] MEDS: LIDOCAINE 5% 1 PATCH TD SCH (09:09)
[2021-01-12] MEDS: CeleBREX 200 MG CAP PO SCH (19:46)
[2021-01-12] MEDS: OMEGA-3 (PURIFIED FISH OIL) 1 GM CAP PO SCH (19:46)
[2021-01-12] MEDS: SERTRALINE HCL 50 MG TABLET PO SCH (19:47)
[2021-01-12] MEDS: LORATADINE 10 MG TAB PO SCH (19:47)
[2021-01-12] MEDS: MONTELUKAST SODIUM 10 MG TABLET PO SCH (19:47)
[2021-01-12] MEDS: MAGNESIUM OXIDE 400 MG TAB PO SCH (19:47)
[2021-01-12] MEDS: POLYETHYLENE (MIRALAX) 17 GM PACK PO PRN (19:58)
--- NOTE | 2021-01-12 23:33 | Hospitalist Progress Note ---
Date of Service January 12, 2021 Assessment & Plan (1) Compression fracture of L2: (2) Fall: (3) Ambulatory dysfunction: (4) Lumbar spinal stenosis: Plan: This is a 75-year-old female who has significant past medical history of hypothyroidism, depression with anxiety, lumbar spinal stenosis, GERD, asthma, allergic rhinitis who presents to ED after sustaining fall at home. She states she lost her balance and fell to the ground. Present on admission with worsening back pain CT lumbar spine reveals an acute mild superior endplate compression fracture at L2 up to 10% loss of height anteriorly with mild paravertebral edema. Also noted on CT was mild central canal narrowing at L4-L5 due to broad-based posterior disc bulge. Pelvic CT reveals intact left hip replacement. Continue pain control with Oxycodone, Lidocaine patch, Celebrex and Tylenol Orthopedic spine Dr. Anderson consulted LSO brace for her to wear when out of bed and ambulating. Continue light activity and no lifting more than 5 lbs if no improvement and pain worsening in the next few days, might be a candidate for kyphoplasty. No surgical intervention currently Continue PT/OT eval Continue to monitor (5) Sinus bradycardia: Plan: Patient is on 12.5 mg of metoprolol succinate She is currently asymptomatic Hold parameters in place (6) Hypothyroidism: Plan: Continue Synthroid (7) GERD (gastroesophageal reflux disease): Plan: Continue PPI and H2 freddy Dispo: Medical, consider rehab if ambulatory dysfunction persist despite pain control PCP: Pankaj FULL CODE Admission and Anticipated Discharge Date Admission Date: January 11, 2021 Subjective Pt was seen and examined Lying in bed with no distress Pt said that her pain seems to get a little better She said that coughing and deep breathing cause more pain She said that pain improved with standing denies any chest pain, palpitation and SOB Physical Exam Physical Exam: General- No acute distress Head- atraumatic Eyes- PERRL, EOMI, ENT- oropharynx clear Neck- supple, no JVD Lungs- clear to auscultation Heart- regular rhythm; no murmur Abdomen- normal bowel sounds, soft, nontender Extremities- no calf tenderness Neuro- alert, oriented x 3; PERRL, EOMI; no facial palsy; no dysarthria Skin- warm & dry Results & Data Results & Data ([facility]) Vital Signs (Past 12 Hours) Vital Signs Temp Pulse Resp BP BP Pulse Ox 07/15/21 22:21 36.7 C 50 L 16 138/72 91 01/12/21 15:23 36.5 C 51 L 16 125/72 95 (1) Compression fracture of L2 Encounter type: initial encounter Qualified Code(s): S32.020A - Wedge compression fracture of second lumbar vertebra, initial encounter for closed fracture (2) Fall Encounter type: initial encounter Qualified Code(s): W19.XXXA - Unspecified fall, initial encounter
[2021-01-13] MEDS: LEVOTHYROXINE SODIUM 100 MCG TABLET PO SCH (06:03)
[2021-01-13] MEDS: PANTOprazole 40 MG TAB PO SCH (06:03)
[2021-01-13] MEDS: oxyCODONE HCL IR 5 MG TAB (IMMEDIATE RELEASE) PO PRN ×2 (06:12→22:28)
[2021-01-13] MEDS: FLUTICASONE PROPIONATE NA SPR 16 GM BTL SCH (08:46)
[2021-01-13] MEDS: ACETAMINOPHEN 325 MG TAB PO SCH ×4 (08:47→20:13)
[2021-01-13] MEDS: CALCIUM 600MG + VIT D 400 IU TAB PO SCH (08:47)
[2021-01-13] MEDS: ASCORBIC ACID 500 MG TAB PO SCH (08:47)
[2021-01-13] MEDS: ENOXAPARIN INJ 40 MG/0.4 ML SYR SQ SCH ×2 (08:47→10:41)
[2021-01-13] MEDS: CHOLECALCIFEROL 1,000 UNITS 25 MCG TAB PO SCH (08:47)
[2021-01-13] MEDS: FAMOTIDINE 20 MG TAB PO SCH (08:47)
[2021-01-13] MEDS: LIDOCAINE 5% 1 PATCH TD SCH (10:41)
--- NOTE | 2021-01-13 17:29 | Hospitalist Progress Note ---
Date of Service January 13, 2021 Assessment & Plan (1) Compression fracture of L2: (2) Fall: (3) Ambulatory dysfunction: (4) Lumbar spinal stenosis: Plan: This is a 75-year-old female who has significant past medical history of hypothyroidism, depression with anxiety, lumbar spinal stenosis, GERD, asthma, allergic rhinitis who presents to ED after sustaining fall at home. She states she lost her balance and fell to the ground. Present on admission with worsening back pain CT lumbar spine reveals an acute mild superior endplate compression fracture at L2 up to 10% loss of height anteriorly with mild paravertebral edema. Also noted on CT was mild central canal narrowing at L4-L5 due to broad-based posterior disc bulge. Pelvic CT reveals intact left hip replacement. Continue pain control with Oxycodone, Lidocaine patch, Celebrex and Tylenol Orthopedic spine Dr. Anderson consulted LSO brace for her to wear when out of bed and ambulating. Continue light activity and no lifting more than 5 lbs if no improvement and pain worsening in the next few days, might be a candidate for kyphoplasty. No surgical intervention currently Pain clinically improved Continue PT/OT eval Will need to follow-up with orthopedic outpatient (5) Sinus bradycardia: Plan: Patient is on 12.5 mg of metoprolol succinate She is currently asymptomatic Hold parameters in place (6) Hypothyroidism: Plan: Continue Synthroid (7) GERD (gastroesophageal reflux disease): Plan: Continue PPI and H2 freddy Dispo: Medical, consider rehab if ambulatory dysfunction persist despite pain control Plan to discharge home tomorrow if pain continues to improve PCP: Pankaj FULL CODE Admission and Anticipated Discharge Date Admission Date: January 11, 2021 Subjective Pt was seen and examined for follow-up of back pain Sitting in chair with no distress reading Patient said that her pain improved significantly denies any chest pain, palpitation and SOB Physical Exam Physical Exam: General- No acute distress Head- atraumatic Eyes- PERRL, EOMI, ENT- oropharynx clear Neck- supple, no JVD Lungs- clear to auscultation Heart- regular rhythm; no murmur Abdomen- normal bowel sounds, soft, nontender Extremities- no calf tenderness Neuro- alert, oriented x 3; PERRL, EOMI; no facial palsy; no dysarthria Skin- warm & dry Results & Data Results & Data ([facility]) Vital Signs (Past 12 Hours) Vital Signs Temp Pulse Resp BP Pulse Ox 01/13/21 16:12 36.4 C L 50 L 16 125/76 93 01/13/21 07:15 36.7 C 52 L 16 136/71 92 (1) Compression fracture of L2 Encounter type: initial encounter Qualified Code(s): S32.020A - Wedge compression fracture of second lumbar vertebra, initial encounter for closed fracture (2) Fall Encounter type: initial encounter Qualified Code(s): W19.XXXA - Unspecified fall, initial encounter
[2021-01-13] MEDS: CeleBREX 200 MG CAP PO SCH (20:13)
[2021-01-13] MEDS: MAGNESIUM OXIDE 400 MG TAB PO SCH (20:13)
[2021-01-13] MEDS: MONTELUKAST SODIUM 10 MG TABLET PO SCH (20:13)
[2021-01-13] MEDS: LORATADINE 10 MG TAB PO SCH (20:13)
[2021-01-13] MEDS: OMEGA-3 (PURIFIED FISH OIL) 1 GM CAP PO SCH (20:13)
[2021-01-13] MEDS: SERTRALINE HCL 50 MG TABLET PO SCH (20:13)
[2021-01-13] MEDS: POLYETHYLENE (MIRALAX) 17 GM PACK PO PRN (22:33)
[2021-01-14] MEDS: LEVOTHYROXINE SODIUM 100 MCG TABLET PO SCH (05:46)
[2021-01-14] MEDS: oxyCODONE HCL IR 5 MG TAB (IMMEDIATE RELEASE) PO PRN (09:18)
[2021-01-14] MEDS: ASCORBIC ACID 500 MG TAB PO SCH (09:19)
[2021-01-14] MEDS: CHOLECALCIFEROL 1,000 UNITS 25 MCG TAB PO SCH (09:19)
[2021-01-14] MEDS: PANTOprazole 40 MG TAB PO SCH (09:19)
[2021-01-14] MEDS: CALCIUM 600MG + VIT D 400 IU TAB PO SCH (09:20)
[2021-01-14] MEDS: FLUTICASONE PROPIONATE NA SPR 16 GM BTL SCH (09:22)
[2021-01-14] MEDS: LIDOCAINE 5% 1 PATCH TD SCH (09:22)
[2021-01-14] MEDS: ENOXAPARIN INJ 40 MG/0.4 ML SYR SQ SCH ×2 (09:23→09:32)
[2021-01-14] MEDS: ACETAMINOPHEN 325 MG TAB PO SCH ×2 (09:25→14:26)
[2021-01-14] MEDS: FAMOTIDINE 20 MG TAB PO SCH (09:31)
--- NOTE | 2021-01-14 13:58 | Hospitalist Progress Note ---
Date of Service January 14, 2021 Assessment & Plan (1) Compression fracture of L2: (2) Fall: (3) Ambulatory dysfunction: (4) Lumbar spinal stenosis: Plan: This is a 75-year-old female who has significant past medical history of hypothyroidism, depression with anxiety, lumbar spinal stenosis, GERD, asthma, allergic rhinitis who presents to ED after sustaining fall at home. She states she lost her balance and fell to the ground. Present on admission with worsening back pain CT lumbar spine reveals an acute mild superior endplate compression fracture at L2 up to 10% loss of height anteriorly with mild paravertebral edema. Also noted on CT was mild central canal narrowing at L4-L5 due to broad-based posterior disc bulge. Pelvic CT reveals intact left hip replacement. Continue pain control with Oxycodone, Lidocaine patch, Celebrex and Tylenol Orthopedic spine Dr. Anderson consulted LSO brace for her to wear when out of bed and ambulating. Continue light activity and no lifting more than 5 lbs if no improvement and pain worsening in the next few days, might be a candidate for kyphoplasty. No surgical intervention currently Pain clinically improved Continue PT/OT eval Will need to follow-up with orthopedic outpatient (5) Sinus bradycardia: Plan: Patient is on 12.5 mg of metoprolol succinate She is currently asymptomatic Hold parameters in place stable (6) Hypothyroidism: Plan: Continue Synthroid (7) GERD (gastroesophageal reflux disease): Plan: Continue PPI and H2 freddy Dispo: Will discharge home today PCP: Pankaj FULL CODE Admission and Anticipated Discharge Date Admission Date: January 11, 2021 Subjective Pt was seen and examined for follow-up of back pain Sitting in chair with no distress reading Patient said that her pain is much better She said that she walked with therapy and did well this morning denies any chest pain, palpitation and SOB Physical Exam Physical Exam: General- No acute distress Head- atraumatic Eyes- PERRL, EOMI, ENT- oropharynx clear Neck- supple, no JVD Lungs- clear to auscultation Heart- regular rhythm; no murmur Abdomen- normal bowel sounds, soft, nontender Extremities- no calf tenderness Neuro- alert, oriented x 3; PERRL, EOMI; no facial palsy; no dysarthria Skin- warm & dry Results & Data Results & Data ([facility]) Vital Signs (Past 12 Hours) Vital Signs Temp Pulse Resp BP Pulse Ox 01/14/21 07:51 36.7 C 58 L 18 143/76 H 93 (1) Compression fracture of L2 Encounter type: initial encounter Qualified Code(s): S32.020A - Wedge compression fracture of second lumbar vertebra, initial encounter for closed f racture (2) Fall Encounter type: initial encounter Qualified Code(s): W19.XXXA - Unspecified fall, initial encounter
--- NOTE | 2021-01-26 08:05 | Discharge Summary ---
Date of Service January 14, 2021 Admission HPI Per Admitting Provider This is a 75-year-old female who has significant past medical history of hypothyroidism, depression with anxiety, lumbar spinal stenosis, GERD, asthma, allergic rhinitis who presents to ED after sustaining fall at home. She states she lost her balance and fell to the ground. She did not lose consciousness or hit her head. She reports falling on her buttocks and is complaining of low back and left hip pain. was unable to pick patient up off the ground and therefore EMS was summoned. She describes the pain as an ache with radiation to her hip. She denies any numbness or tingling or radicular symptoms. She did try CBD oil and ice prior to arrival with mild improvement of pain. Pain is improved at rest and made worse with standing. She denies any lightheadedness, dizziness, diaphoresis, nausea or palpitations prior to the fall. She further denies any recent fever, chills, sweats, chest pain, shortness with, cough, or symptoms, nausea, vomiting, abdominal pain. She denies any change in her bowel or urinary habits. Patient resides in [place] during the summer months but spends fall and aparicio between [place] and [place]. Her main residence is [place]. She does have a prior history of left hip replacement that was performed in [place]. In ED patient remained hemodynamically stable. CT of lumbar spine revealed an acute mild superior endplate compression fracture at L2 of approximately 10% loss of height anteriorly. Also noted on CT was mild central canal narrowing at L4-L5 due to a broad-based disc bulge. Mild acute paravertebral edema at the L2 level secondary to compression acute fracture but no associated retropulsion. Pelvis CT revealed an intact left hip arthroplasty with no periprosthetic fracture. No other acute abnormality in the hip. Admission Exam Per Admitting Provider Constitutional: WD/WN, F, vitals as above, NAD, sitting up in bed, pleasant, conversing easily Head: Normocephalic, Atraumatic Eyes: PERRL, conjunctivae normal, anicteric sclerae ENMT: external ear and nose normal, oropharynx normal Neck: trachea midline, no thyromegaly normal visual inspection Respiratory: normal respiratory effort, lungs clear to auscultation, no wheeze, rales, rhonchi. Normal insp/exp effort, no accessory muscle use Cardiovascular: RRR, no murmur, no edema Vessels: no JVD or carotid bruit Chest: normal inspection of chest Abdomen: normal bowel sounds, soft, nontender, no hepatosplenomegaly Musculoskeletal: no cyanosis or clubbing, extremities motor strength 5/5 , pain to low back with straight leg raise b/l and plantar flexion of feet. pain to palpation of vertebral process of lower back Skin: no rashes, warm and dry normal turgor Neurologic: PERRL, EOMI, accommodation nl, no face palsy, no dysarthria CN's II-XI intact bilaterally and moves all extremities Psychiatric: A+Ox3, euthymic affect Lymphatic: no cervical or axillary lymphadenopathy : deferred Principal Diagnosis (1) Compression fracture of L2: (2) Fall: (3) Ambulatory dysfunction: (4) Lumbar spinal stenosis: Discharge Exam General- No acute distress Head- atraumatic Eyes- PERRL, EOMI, ENT- oropharynx clear Neck- supple, no JVD Lungs- clear to auscultation Heart- regular rhythm; no murmur Abdomen- normal bowel sounds, soft, nontender Extremities- no calf tenderness Neuro- alert, oriented x 3; PERRL, EOMI; no facial palsy; no dysarthria Skin- warm & dry Discharge Data Allergies Allergy/AdvReac Type Severity Reaction Status Date / Time No Known Allergies Allergy Verified 01/11/21 08:55 Consultations 01/11/21 10:30 ED Decision to Admit Stat 01/11/21 11:23 Consult Orthopedic Surgery Routine Ordered Studies 01/11/21 08:07 CT lumbar spine wo con Stat CT pelvis wo con Stat XR chest 1V portable HISTORY: Fall. weakness COMPARISON: None. FINDINGS: The cardiac silhouette is mildly enlarged. No focal lung consolidations to suggest pneumonia. No evidence for pulmonary edema. No pleural effusions. No pneumothorax. Mild diffuse interstitial thickening which is likely chronic. IMPRESSION: Mild cardiomegaly and mild chronic interstitial thickening. No acute process within the chest. ACT 112: Negative or not required by law. Electronically signed by: Franck Campos M.D. 01/11/2021 11:04 AM Dictated: 01/11/21 1102Transcribed: 01/11/[address] pelvis wo con CLINICAL HISTORY: Left hip pain following fall. COMPARISON STUDY: No previous studies for comparison. TECHNIQUE: Axial images of the pelvis and hips were obtained without IV contrast. Sagittal and coronal reconstructions were viewed. Automated exposure control was utilized for the study. A dose lowering technique was utilized adhering to the principles of ALARA. FINDINGS: Alignment of the left hip arthroplasty is anatomic. There is no periprosthetic fracture. No acute fracture within the pelvis or hips is identified. No osseous lesion is noted. The sacroiliac joints and symphysis pubis are intact. No pelvic hematoma is noted. There is no pelvic lymphadenopathy. IMPRESSION: 1. No acute fracture within the pelvis or hips. 2. Intact left hip arthroplasty. No periprosthetic fracture. ACT 112: Negative or not required by law. Electronically signed by: Lyle Vargas M.D. 01/11/2021 9:52 AM Dictated: 01/11/2145Transcribed: 01/11/[address] DOSE: HISTORY: Pt c/o low back pain s/p fall TECHNIQUE: Multiaxial CT images of the lumbar spine were performed and reformatted in the sagittal and coronal plane without the use of contrast. A dose lowering technique was utilized adhering to the principles of ALARA. COMPARISON: None. FINDINGS: There is an acute mild superior endplate compression fracture at L2 demonstrating up to 10% loss of height anteriorly. No associated retropulsion. No additional fractures within the lumbar spine. There is moderate to severe disc space narrowing at L3-L4. There are mild facet degenerative changes within the lower lumbar spine. The sacrum appears intact. Mild central canal narrowing at L4-L5 due to broad-based posterior disc bulge. Mild paravertebral edema at the L2 level secondary to the acute fracture. IMPRESSION: An acute mild superior endplate compression fracture at L2. No associated re tropulsion. ACT 112: Negative or not required by law. Electronically signed by: Franck Campos M.D. 01/11/2021 9:28 AM Dictated: 01/11/21925Transcribed: 01/11/21925 Hospital Course (1) Compression fracture of L2: (2) Fall: (3) Ambulatory dysfunction: (4) Lumbar spinal stenosis: This is a 75-year-old female who has significant past medical history of hypothyroidism, depression with anxiety, lumbar spinal stenosis, GERD, asthma, allergic rhinitis who presents to ED after sustaining fall at home. She states she lost her balance and fell to the ground. Present on admission with worsening back pain CT lumbar spine reveals an acute mild superior endplate compression fracture at L2 up to 10% loss of height anteriorly with mild paravertebral edema. Also noted on CT was mild central canal narrowing at L4-L5 due to broad-based posterior disc bulge. Pelvic CT reveals intact left hip replacement. Continue pain control with Oxycodone, Lidocaine patch, Celebrex and Tylenol Orthopedic spine Dr. Anderson consulted LSO brace for her to wear when out of bed and ambulating. Continue light activity and no lifting more than 5 lbs if no improvement and pain worsening in the next few days, might be a candidate for kyphoplasty. No surgical intervention currently Pain clinically improved Continue PT/OT eval Will need to follow-up with orthopedic outpatient (5) Sinus bradycardia: Patient is on 12.5 mg of metoprolol succinate She is currently asymptomatic Hold parameters in place stable (6) Hypothyroidism: Continue Synthroid (7) GERD (gastroesophageal reflux disease): Continue PPI and H2 freddy Dispo: Will discharge home today PCP: Pankaj FULL CODE Total Time Total Time Spent Total Time Spent (In Minutes): 35 minutes Discharge Plan Discharge Items Patient Disposition: Home - Home Health Services Reason For Visit: FALL, L2 COMPRESSION FRACTURE Discharge Diagnosis: (1) Compression fracture of L2: (2) Fall: (3) Ambulatory dysfunction: (4) Lumbar spinal stenosis: Activity: As commented below Non-emergency contact: Primary Care Provider Call non-emergency contact if: you have any medication questions Follow-up/Referrals: Omar Lira DO [Primary Care Provider] - (Date & Time 01/19/2021 11:20 AM Provider Omar Lira DO Department [facility] ) Diet: Heart Healthy Addtl Attending Provider Instructions: Follow up with your primary care provider Dr. Lira on 01/19/2021 at 11:20 AM at the [facility] Anderson Continue physical and occupational therapy Continue to wear the brace when out of bed and ambulating. Continue light activity and no lifting more than 5 lbs Fall precaution increase activity gradually as tolerate Do not drive or operate any machine while taking narcotic Hold next dose of narcotic if you become lethargy or drowsy Pending Studies at Discharge: No Stand-Alone Forms: My [facility], Opioid Pain Management, Smoking Cessation Medications and DC Order Prescriptions: New oxycodone 5 mg Tablet 5 mg PO Q12H PRN (Reason: pain (scale score 7-10)) Qty: 10 RF: 0 Continued ascorbic acid (vitamin C) [Vitamin C] 1,000 mg Tablet 1 g PO QAM RF: 0 acetaminophen [Acetaminophen Extra Strength] 500 mg Tablet 500 mg PO BID PRN (Reason: fever/pain) RF: 0 levothyroxine 100 mcg Tablet 100 mcg PO QAM RF: 0 montelukast 10 mg Tablet 10 mg PO PM RF: 0 metoprolol succinate 25 mg Tablet Extended Release 24 Hr 12.5 mg PO PM RF: 0 sertraline 50 mg Tablet 50 mg PO PM RF: 0 loratadine 10 mg Tablet 10 mg PO PM RF: 0 Restasis 0.05 % Dropperette 1 drp OPB AMPM RF: 0 vitamin B complex-folic acid [Super B Maxi Complex] 0.4 mg Tablet 1 tab PO QAM RF: 0 omega 2-nwc-tte-fish oil [Fish Oil] 360-1,200 mg Capsule,Delayed Release(Dr/Ec) 1 cap PO PM RF: 0 omeprazole 10 mg Capsule,Delayed Release(Dr/Ec) 10 mg PO QAM RF: 0 celecoxib 200 mg capsule 200 mg PO PM RF: 0 valacyclovir 1 gram tablet 1,000 mg PO DIRECTED PRN (Reason: Cold Sores) RF: 0 acetaminophen [Tylenol 8 Hour] 650 mg Tablet Extended Release 650 mg PO Q8H PRN (Reason: Pain) RF: 0 famotidine 20 mg tablet 20 mg PO QAM RF: 0 naproxen sodium [Aleve] 220 mg Tablet 220 mg PO PM PRN (Reason: Pain) RF: 0 mometasone 50 mcg/actuation spray,non-aerosol 2 spray INTRANASAL DAILY RF: 0 zinc 50 mg Tablet 50 mg PO QAM RF: 0 magnesium 250 mg Tablet 250 mg PO PM RF: 0 albuterol sulfate 90 mcg/actuation HFA aerosol inhaler 1 puff INHALATION Q4H PRN (Reason: Shortness Of Breath) RF: 0 coQ10 (ubiquinol) 200 mg Capsule 200 mg PO PM RF: 0 calcium carbonate-vitamin D3 [Calcium 600 with Vitamin D3] 600 mg(1,500mg) -5 00 unit Capsule 1 cap PO QAM RF: 0 turmeric-turmeric root extract 450-50 mg Capsule 1 cap PO QAM RF: 0 Discharge Orders: Discharge Order (Routine); Ordered 01/14/21 Ordered By: Jayson Alvarado Admission Data Admit Date/Time: 01/11/21 10:34 Attending Provider: Jayson Alvarado Admit Provider: Jayson Alvarado Primary Care Provider: Omar Lira Other Providers: Andres Anderson Other Interventions: Discharge Summary Assessment (RN) Last Done: 01/14/21 14:40
== END 2021-01-14 15:47 | disposition home health service (06) ==
LOC: ED 07:56 → EDINP 07:56 → 3W 10:35
DX: S32.020A Wedge compression fracture of second lumbar vertebra, initial encounter for closed fracture; R26.2 Difficulty in walking, not elsewhere classified; K21.9 Gastro-esophageal reflux disease without esophagitis; Z79.899 Other long term (current) drug therapy; E03.9 Hypothyroidism, unspecified; W19.XXXA Unspecified fall, initial encounter; G47.30 Sleep apnea, unspecified; M19.90 Unspecified osteoarthritis, unspecified site; R00.1 Bradycardia, unspecified; M48.061 Spinal stenosis, lumbar region without neurogenic claudication; Z96.642 Presence of left artificial hip joint

== ENCOUNTER 2024-11-16 17:06 | Observation (INO) ==
--- NOTE | 2024-11-16 17:48 | Emergency Department Note ---
Impression & Plan Anaplasmosis, Fever, Acute alteration in mental status ED Provider Note NAME: BUD OLIVERA AGE: 79 SEX: F : 1945 ARRIVES VIA: Ambulance INFORMANT: Patient, the patient's family members, EMS ED PROVIDER(S): Masoud Laura DO CHIEF COMPLAINT: Altered mental status HPI: The patient is an 79-year-old female who presented to the emergency department with altered mental status. According to the family numbers the symptoms have been ongoing for the last few days. They did notice at home that she had a fever. The patient herself offers no complaints. She denies having any headache or abdominal pain. Family states that she did complain of back pain earlier. The patient complains of bilateral back pain to them. She is also had some nausea. She did not receive any Tylenol for fever. She did take her pain medication at home recently. They were unsure if this was the cause of her alteration of mental status. The patient has had no chest pain. She did recently have a republican for her birthday over the weekend. There were no known sick contacts. ROS: See above HPI for pertinent positives & negatives. A total of 10 systems reviewed and were otherwise negative. PAST MEDICAL HISTORY: See Below PAST SURGICAL HISTORY: See Below FAMILY HISTORY: See Below SOCIAL HISTORY: See Below HOME MEDICATIONS: See Below ALLERGIES: See Below VITALS: See Below PHYSICAL EXAMINATION: GENERAL: The patient is awake to verbal command. She is somewhat listless and trails off when she is not being asked direct questions. EYES: The conjunctivae are clear. The pupils are round and reactive. EARS, NOSE, MOUTH AND THROAT: The nose is without any evidence of any deformity. Mucous membranes are dry. NECK: The neck is nontender and supple. RESPIRATORY: Normal respiratory effort is noted there is no evidence of wheezing rhonchi or rales CARDIOVASCULAR: Regular rate and rhythm noted there no murmurs rubs or gallops normal S1 normal S2. GASTROINTESTINAL: The abdomen is soft. Abdomen is nontender. MUSCULOSKELETAL/EXTREMITIES: There is no evidence of gross deformity full range of motion is noted in the hips and shoulders. SKIN: The skin is warm and dry. Trace pedal edema was noted bilaterally. NEUROLOGIC: The patient is awake to verbal commands. She is oriented to person place but not situation. Strength is symmetric but diminished. There is no facial droop. MEDICAL DECISION MAKING: The patient is an 79-year-old female who presented to the emergency department for an evaluation of a febrile illness. The patient was also having episodes of confusion. I discussed the patient's laboratory and radiographic studies with her and her . She was treated with IV fluids as well as IV antibiotics in emergency department. Given her findings I do not feel she would be a good candidate for outpatient management. For this reason I discussed her condition with the on-call [facility] hospitalist. The patient's white blood cell count was found to be low. For this reason further testing was obtained for tickborne illnesses. 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 I discussed this condition with the patient although her family is already left. She was started on doxycycline. Triage Nursing notes reviewed. Prior medical records reviewed Vital Signs: reviewed and remarkable for no significant abnormalities Differential diagnosis: Infection, hypoglycemia, electrolyte abnormalities, overdose, toxicologic, cardiac sources, intracerebral event, neurologic, trauma, as well as other pathologies. ER treatment provided: See below Diagnostics interpreted by me: ECG: EKG was obtained in the emergency department. My interpretation is normal sinus rhythm at 80 bpm. There is no PVCs noted. Nonspecific ST depressions were noted in the lateral leads. This was compared to a tracing from December 23, 2023. No changes were noted. Cardiac Monitoring: An order was placed for continuous cardiac monitoring. The monitor shows a rate of 76 bpm with sinus rhythm. Laboratory studies: As stated above and show below. Imaging studies: See below. Radiographic imaging was reviewed by myself Consultation(s): I discussed this case with Dr. Mosqueda [facility] Past Med/Surg History Problem List (Updated 11/16/24 @ 22:49 by Masoud Laura DO) Acute alteration in mental status (Acute) Fever (Acute) Anaplasmosis (Acute) Dysphagia Encounter for pre-operative examination Medical History Sinus bradycardia Lumbar spinal stenosis Ambulatory dysfunction Compression fracture of L2 Osteoarthritis Spinal stenosis Degenerative disc disease Chronic back pain GERD (gastroesophageal reflux disease) Hypothyroidism Anxiety Irregular heart rate reason metoprolol Sleep apnea doesnt use CPAP as ordered Surgical History History of section History of lumpectomy of right breast benign History of dilatation and curettage History of open reduction and internal fixation (ORIF) procedure clavicle fx--hardware removed History of total left hip replacement History of colonoscopy History of wisdom tooth extraction History of cardiac cath 2013 @ [place]--no stents Family History Other Family history not known due to adoption Social History Smoking Status: Never smoker Second Hand Exposure: No; Do You Dip or Chew Tobacco: No; Hx Alcohol Use: Yes Alcohol type: wine and hard liquor Hx Substance Use: No Preferred Language: Tajik Communication Ability: Effective Harvesting Supervisor Required: No Beliefs That Will Affect Care: Islam Islam Beliefs: Adventist Current Living Situation: Spouse Feels Safe at Home: Yes Assistive Devices: None and Brace/Splint/Immobilizer Allergies Allergies Allergy/AdvReac Type Severity Reaction Status Date / Time No Known Allergies Allergy Verified 11/16/24 18:20 Home Meds Home Medications Medication Instructions Recorded Confirmed acetaminophen 500 mg tablet 500 mg PO BID PRN fever/pain 01/19/19 11/16/24 (Acetaminophen Extra Strength) ascorbic acid (vitamin C) 1,000 mg 1 g PO QAM 01/19/19 11/16/24 tablet (Vitamin C) cyclosporine 0.05 % eye drops in a 1 drp OPB AMPM 01/19/19 11/16/24 dropperette (Restasis) levothyroxine 100 mcg tablet 100 mcg PO DAILYBB 01/19/19 11/16/24 loratadine 10 mg tablet 10 mg PO PM 01/19/19 11/16/24 metoprolol succinate 25 mg 12.5 mg PO QPM 01/19/19 11/16/24 tablet,extended release 24 hr omega-3 360 bk-aud-xxo-fish oil 1 cap PO Q OTHER DAY 01/19/19 11/16/24 1,200 mg capsule,delayed release (Fish Oil) omeprazole 10 mg capsule,delayed 10 mg PO DAILYBB 01/30/19 11/16/24 release calcium 600 mg (as 1 cap PO BID 01/11/21 11/16/24 carbonate)-vitamin D3 12.5 mcg (500 unit) capsule (Calcium with Vit D3) celecoxib 200 mg capsule 200 mg PO PM 01/11/21 11/16/24 mometasone 50 mcg/actuation nasal 2 spray intranasal DAILY 01/11/21 11/16/24 spray valacyclovir 1 gram tablet 1,000 mg PO DIRECTED PRN Cold 01/11/21 11/16/24 Sores aspirin 81 mg tablet,delayed 81 mg PO QPM 12/23/23 11/16/24 release gabapentin 300 mg capsule 300 mg PO BID 12/23/23 11/16/24 multivitamin 1 tab PO QPM 12/23/23 11/16/24 rosuvastatin 5 mg tablet 5 mg PO DAILY 12/23/23 11/16/24 Turmeric/Curcumin/Bioperine 2,000 mg PO QAM 11/16/24 11/16/24 azelastine 137 mcg (0.1 %) nasal 2 spray intranasal BID 11/16/24 11/16/24 spray flaxseed oil 1,000 mg capsule 1,000 mg PO QAM 11/16/24 11/16/24 latanoprost 0.005 % eye drops 1 drp ophthalmic (eye) QPM 11/16/24 11/16/24 montelukast 10 mg tablet 10 mg PO DAILY 11/16/24 11/16/24 (Singulair) Results & Data (ED) Vital Signs Vital Signs - 24 hr 11/16/24 17:21 11/16/24 17:22 11/16/24 17:22 Temperature 39.6 C H Temperature Source Oral Pulse Rate 83 84 Pulse Rate [Right Finger] 89 Pulse Rate from SpO2 Sensor 78 Pulse Rhythm Pulse Rhythm [Right Finger] Regular Pulse Strength Pulse Strength [Right Finger] Normal Respiratory Rate 31 H 29 H Respiratory Effort / Characteristics Non-Labored Respiratory Depth Normal Respiratory Pattern Regular Blood Pressure Blood Pressure [Right Arm] 157/69 H Blood Pressure Mean Blood Pressure Mean [Right Arm] 98 Blood Pressure Position Blood Pressure Position [Right Arm] Lying Pulse Oximetry 91 91 Oxygen Delivery Method Room Air Sepsis Recent Fever Within 48 Hours Sepsis New/Unexplained Change in Mental Status Sepsis Action Taken by Nursing 11/16/24 17:29 11/16/24 17:29 11/16/24 17:33 Temperature 39.6 C H Temperature Source Oral Pulse Rate 89 79 Pulse Rate [Right Finger] Pulse Rate from SpO2 Sensor 78 Pulse Rhythm Regular Pulse Rhythm [Right Finger] Pulse Strength Normal Pulse Strength [Right Finger] Respiratory Rate 29 H 26 H Respiratory Effort / Characteristics Non-Labored Respiratory Depth Normal Respiratory Pattern Regular Blood Pressure 157/69 H Blood Pressure [Right Arm] Blood Pressure Mean 98 Blood Pressure Mean [Right Arm] Blood Pressure Position Lying Blood Pressure Position [Right Arm] Pulse Oximetry 92 92 93 Oxygen Delivery Method Room Air Room Air Sepsis Recent Fever Within 48 Hours Yes Sepsis New/Unexplained Change in Mental Status Yes Sepsis Action Taken by Nursing Physician Notified 11/16/24 17:35 11/16/24 17:39 11/16/24 17:40 Temperature Temperature Source Pulse Rate 84 Pulse Rate [Right Finger] 82 Pulse Rate from SpO2 Sensor 83 Pulse Rhythm Pulse Rhythm [Right Finger] Regular Pulse Strength Pulse Strength [Right Finger] Normal Respiratory Rate 20 40 H Respiratory Effort / Characteristics Non-Labored Respiratory Depth Normal Respiratory Pattern Blood Pressure 136/83 Blood Pressure [Right Arm] 136/83 Blood Pressure Mean 97 Blood Pressure Mean [Right Arm] 100 Blood Pressure Position Blood Pressure Position [Right Arm] Lying Pulse Oximetry 93 92 Oxygen Delivery Method Room Air Sepsis Recent Fever Within 48 Hours Sepsis New/Unexplained Change in Mental Status Sepsis Action Taken by Nursing 11/16/24 17:41 11/16/24 17:42 11/16/24 17:54 Temperature Temperature Source Pulse Rate 85 86 Pulse Rate [Right Finger] Pulse Rate from SpO2 Sensor 87 Pulse Rhythm Pulse Rhythm [Right Finger] Pulse Strength Pulse Strength [Right Finger] Respiratory Rate 37 H 28 H Respiratory Effort / Characteristics Respiratory Depth Respiratory Pattern Blood Pressure Blood Pressure [Right Arm] Blood Pressure Mean Blood Pressure Mean [Right Arm] Blood Pressure Position Blood Pressure Position [Right Arm] Pulse Oximetry 96 92 Oxygen Delivery Method Room Air Sepsis Recent Fever Within 48 Hours Sepsis New/Unexplained Change in Mental Status Sepsis Action Taken by Nursing 11/16/24 17:57 11/16/24 18:00 11/16/24 18:13 Temperature Temperature Source Pulse Rate 82 81 Pulse Rate [Right Finger] Pulse Rate from SpO2 Sensor 82 Pulse Rhythm Pulse Rhythm [Right Finger] Pulse Strength Pulse Strength [Right Finger] Respiratory Rate 42 H 31 H Respiratory Effort / Characteristics Respiratory Depth Respiratory Pattern Blood Pressure 137/105 H 156/69 H Blood Pressure [Right Arm] Blood Pressure Mean 117 94 Blood Pressure Mean [Right Arm] Blood Pressure Position Blood Pressure Position [Right Arm] Pulse Oximetry 92 Oxygen Delivery Method Sepsis Recent Fever Within 48 Hours Sepsis New/Unexplained Change in Mental Status Sepsis Action Taken by Nursing 11/16/24 18:15 11/16/24 18:30 11/16/24 18:48 Temperature Temperature Source Pulse Rate 82 81 Pulse Rate [Right Finger] 80 Pulse Rate from SpO2 Sensor 82 Pulse Rhythm Pulse Rhythm [Right Finger] Regular Pulse Strength Pulse Strength [Right Finger] Normal Respiratory Rate 27 H 29 H 33 H Respiratory Effort / Characteristics Non-Labored Spontaneous Respiratory Depth Normal Respiratory Pattern Regular Blood Pressure Blood Pressure [Right Arm] 156/69 H Blood Pressure Mean Blood Pressure Mean [Right Arm] 98 Blood Pressure Position Blood Pressure Position [Right Arm] Lying Pulse Oximetry 93 92 Oxygen Delivery Method Room Air Sepsis Recent Fever Within 48 Hours Sepsis New/Unexplained Change in Mental Status Sepsis Action Taken by Nursing 11/16/24 18:51 11/16/24 18:53 11/16/24 18:54 Temperature Temperature Source Pulse Rate 106 H 83 Pulse Rate [Right Finger] Pulse Rate from SpO2 Sensor 69 83 Pulse Rhythm Pulse Rhythm [Right Finger] Pulse Strength Pulse Strength [Right Finger] Respiratory Rate 35 H 38 H Respiratory Effort / Characteristics Respiratory Depth Respiratory Pattern Blood Pressure 140/64 Blood Pressure [Right Arm] Blood Pressure Mean 79 Blood Pressure Mean [Right Arm] Blood Pressure Position Blood Pressure Position [Right Arm] Pulse Oximetry 91 91 Oxygen Delivery Method Sepsis Recent Fever Within 48 Hours Sepsis New/Unexplained Change in Mental Status Sepsis Action Taken by Nursing 11/16/24 19:00 11/16/24 19:06 11/16/24 19:12 Temperature Temperature Source Pulse Rate 83 80 Pulse Rate [Right Finger] Pulse Rate from SpO2 Sensor 83 80 Pulse Rhythm Pulse Rhythm [Right Finger] Pulse Strength Pulse Strength [Right Finger] Respiratory Rate 28 H 28 H Respiratory Effort / Characteristics Respiratory Depth Respiratory Pattern Blood Pressure 135/50 L Blood Pressure [Right Arm] Blood Pressure Mean 84 Blood Pressure Mean [Right Arm] Blood Pressure Position Blood Pressure Position [Right Arm] Pulse Oximetry 93 92 Oxygen Delivery Method Sepsis Recent Fever Within 48 Hours Sepsis New/Unexplained Change in Mental Status Sepsis Action Taken by Nursing 11/16/24 19:15 11/16/24 19:15 11/16/24 19:15 Temperature Temperature Source Pulse Rate 84 Pulse Rate [Right Finger] Pulse Rate from SpO2 Sensor 75 Pulse Rhythm Pulse Rhythm [Right Finger] Pulse Strength Pulse Strength [Right Finger] Respiratory Rate 25 H Respiratory Effort / Characteristics Respiratory Depth Respiratory Pattern Blood Pressure 139/64 139/64 Blood Pressure [Right Arm] Blood Pressure Mean 88 88 Blood Pressure Mean [Right Arm] Blood Pressure Position Blood Pressure Position [Right Arm] Pulse Oximetry 92 Oxygen Delivery Method Sepsis Recent Fever Within 48 Hours Sepsis New/Unexplained Change in Mental Status Sepsis Action Taken by Nursing 11/16/24 19:15 11/16/24 19:15 11/16/24 19:39 Temperature Temperature Source Pulse Rate 80 Pulse Rate [Right Finger] Pulse Rate from SpO2 Sensor Pulse Rhythm Pulse Rhythm [Right Finger] Pulse Strength Pulse Strength [Right Finger] Respiratory Rate 30 H Respiratory Effort / Characteristics Respiratory Depth Respiratory Pattern Blood Pressure 139/64 139/64 Blood Pressure [Right Arm] Blood Pressure Mean 88 88 Blood Pressure Mean [Right Arm] Blood Pressure Position Blood Pressure Position [Right Arm] Pulse Oximetry Oxygen Delivery Method Sepsis Recent Fever Within 48 Hours Sepsis New/Unexplained Change in Mental Status Sepsis Action Taken by Nursing 11/16/24 19:42 11/16/24 19:45 11/16/24 19:45 Temperature Temperature Source Pulse Rate 81 Pulse Rate [Right Finger] Pulse Rate from SpO2 Sensor 81 Pulse Rhythm Pulse Rhythm [Right Finger] Pulse Strength Pulse Strength [Right Finger] Respiratory Rate 25 H Respiratory Effort / Characteristics Respiratory Depth Respiratory Pattern Blood Pressure 145/66 H 145/66 H Blood Pressure [Right Arm] Blood Pressure Mean 92 92 Blood Pressure Mean [Right Arm] Blood Pressure Position Blood Pressure Position [Right Arm] Pulse Oximetry 93 Oxygen Delivery Method Sepsis Recent Fever Within 48 Hours Sepsis New/Unexplained Change in Mental Status Sepsis Action Taken by Nursing 11/16/24 19:51 11/16/24 20:00 11/16/24 20:13 Temperature 37.5 C Temperature Source Oral Pulse Rate 77 109 H Pulse Rate [Right Finger] Pulse Rate from SpO2 Sensor 78 Pulse Rhythm Pulse Rhythm [Right Finger] Pulse Strength Pulse Strength [Right Finger] Respiratory Rate 22 24 Respiratory Effort / Characteristics Respiratory Depth Respiratory Pattern Blood Pressure 151/82 H Blood Pressure [Right Arm] Blood Pressure Mean 103 Blood Pressure Mean [Right Arm] Blood Pressure Position Blood Pressure Position [Right Arm] Pulse Oximetry 94 93 Oxygen Delivery Method Sepsis Recent Fever Within 48 Hours Sepsis New/Unexplained Change in Mental Status Sepsis Action Taken by Nursing 11/16/24 20:15 11/16/24 20:30 11/16/24 21:00 Temperature Temperature Source Pulse Rate 76 74 77 Pulse Rate [Right Finger] Pulse Rate from SpO2 Sensor Pulse Rhythm Pulse Rhythm [Right Finger] Pulse Strength Pulse Strength [Right Finger] Respiratory Rate 17 19 25 H Respiratory Effort / Characteristics Respiratory Depth Respiratory Pattern Blood Pressure 148/71 H 127/60 150/78 H Blood Pressure [Right Arm] Blood Pressure Mean 89 93 103 Blood Pressure Mean [Right Arm] Blood Pressure Position Blood Pressure Position [Right Arm] Pulse Oximetry 94 93 91 Oxygen Delivery Method Sepsis Recent Fever Within 48 Hours Sepsis New/Unexplained Change in Mental Status Sepsis Action Taken by Nursing 11/16/24 21:06 11/16/24 21:15 11/16/24 21:30 Temperature Temperature Source Pulse Rate 74 91 H Pulse Rate [Right Finger] Pulse Rate from SpO2 Sensor Pulse Rhythm Pulse Rhythm [Right Finger] Pulse Strength Pulse Strength [Right Finger] Respiratory Rate 18 Respiratory Effort / Characteristics Respiratory Depth Respiratory Pattern Blood Pressure 134/72 143/84 H Blood Pressure [Right Arm] Blood Pressure Mean 80 105 Blood Pressure Mean [Right Arm] Blood Pressure Position Blood Pressure Position [Right Arm] Pulse Oximetry 92 Oxygen Delivery Method Sepsis Recent Fever Within 48 Hours Sepsis New/Unexplained Change in Mental Status Sepsis Action Taken by Nursing 11/16/24 22:15 11/16/24 22:30 11/16/24 22:45 Temperature Temperature Source Pulse Rate 84 76 Pulse Rate [Right Finger] Pulse Rate from SpO2 Sensor Pulse Rhythm Pulse Rhythm [Right Finger] Pulse Strength Pulse Strength [Right Finger] Respiratory Rate 19 25 H Respiratory Effort / Characteristics Respiratory Depth Respiratory Pattern Blood Pressure 142/88 H 128/76 138/65 Blood Pressure [Right Arm] Blood Pressure Mean 97 90 78 Blood Pressure Mean [Right Arm] Blood Pressure Position Blood Pressure Position [Right Arm] Pulse Oximetry 92 92 Oxygen Delivery Method Sepsis Recent Fever Within 48 Hours Sepsis New/Unexplained Change in Mental Status Sepsis Action Taken by [facility] Medications Current Medication List: was personally reviewed by me Laboratory Data Attestation: I reviewed the patient's lab results. 11/16/24 17:33 11/16/24 17:33 Lab Results 11/16/24 11/16/24 11/16/24 Range/Units 17:30 17:32 17:33 WBC 3.50 L (4.8-10.8) K/ul RBC 4.29 (4.20-5.40) M/uL Hgb 13.4 (12.0-16.0) g/dl Hct 39.5 (37.0-47.0) % MCV 92.1 (80.0-100.0) fL MCH 31.2 (25.0-34.0) pg MCHC 33.9 (32.0-36.0) g/dL RDW Std Deviation 43.3 (36.4-46.3) fL RDW Coeff of Ajay 12.9 (11.5-14.5) % Plt Count 136 (130-400) K/uL MPV 9.8 (9.4-12.4) fL Immature Gran % (Auto) 0.6 % Neut % (Auto) 87.1 % Lymph % (Auto) 9.1 % [place] % (Auto) 2.6 % Eos % (Auto) 0.0 % Baso % (Auto) 0.6 % Neut # (Auto) 3.05 (1.40-6.50) K/uL Lymph # (Auto) 0.32 L (1.20-3.40) K/uL [place] # (Auto) 0.09 L (0.11-0.59) K/uL Eos # (Auto) 0.00 (0.00-0.50) K/uL Baso # (Auto) 0.02 (0.00-0.20) K/uL Immature Gran # (Auto) 0.02 (0.01-0.20) K/uL PT 11.4 (9.0-12.0) Seconds INR 1.1 (0.9-1.1) APTT 28 (21-31) Seconds PTT Ratio 1.0 VBG pH (7.36-7.41) VBG pCO2 (38-50) mmHg VBG pO2 mmHg VBG HCO3 mmol/L VBG O2 Saturation % VBG Base Excess mEq/L Sodium 137 (136-145) mmol/L Potassium 3.9 (3.5-5.1) mmol/L Chloride 104 (98-107) mmol/L Carbon Dioxide 25 (21-32) mmol/L Anion Gap 8 (3-11) BUN 25 H (6-23) mg/dl Creatinine 0.79 (0.6-1.2) mg/dl Est Cr Clr Drug Dosing 53.5 ml/min eGFR 75.57 BUN/Creatinine Ratio 31.6 H (10-20) Glucose 113 H (70-99(Fasting)) mg/dl Lactate 0.9 (0.4-2.0) mmol/L Calcium 9.1 (8.6-10.3) mg/dl Magnesium 2.0 (1.7-2.4) mg/dl Total Bilirubin 0.7 (0.2-1.0) mg/dl Direct Bilirubin 0.2 (0-0.2) mg/dl AST 76 H (13-39) U/L ALT 57 H (7-52) U/L Alkaline Phosphatase 77 (34-104) U/L Troponin I High Sens 20.8 H (0-14) pg/ml Total Protein 6.8 (6.0-8.3) gm/dl Albumin 4.3 (3.4-5.0) gm/dl Procalcitonin 0.51 H (0-0.5) ng/ml TSH 0.894 (0.300-4.500) uIu/ml Urine Color Urine Appearance (Clear) Urine pH (4.5-7.5) Ur Specific [place] (1.000-1.030) Urine Protein (Negative) Urine Glucose (UA) (Negative) Urine Ketones (Negative) Urine Blood (Negative) Urine Nitrite (Negative) Urine Bilirubin (Negative) Urine Urobilinogen (Negative) Ur Leukocyte Esterase (Negative) Urine WBC (Auto) (0-5) /hpf Urine RBC (Auto) (0-2) /hpf U Hyaline Cast (Auto) (0-2) /lpf U Epithel Cells (Auto) (0-2) /hpf Urine Bacteria (Auto) (None Seen) Urine Comment Anaplasma Smear Anaplasma Comment Babesia Smear Lyme Disease Screen (Negative) SARS-CoV-2 (PCR) NEGATIVE (Negative) Influenza Type A (PCR) Negative (Neg) Influenza Type B (PCR) Negative (Neg) RSV (RT-PCR) Negative (Neg) 11/16/24 11/16/24 11/16/24 Range/Units 17:36 17:47 20:10 WBC (4.8-10.8) K/ul RBC (4.20-5.40) M/uL Hgb (12.0-16.0) g/dl Hct (37.0-47.0) % MCV (80.0-100.0) fL MCH (25.0-34.0) pg MCHC (32.0-36.0) g/dL RDW Std Deviation (36.4-46.3) fL RDW Coeff of Ajay (11.5-14.5) % Plt Count (130-400) K/uL MPV (9.4-12.4) fL Immature Gran % (Auto) % Neut % (Auto) % Lymph % (Auto) % [place] % (Auto) % Eos % (Auto) % Baso % (Auto) % Neut # (Auto) (1.40-6.50) K/uL Lymph # (Auto) (1.20-3.40) K/uL [place] # (Auto) (0.11-0.59) K/uL Eos # (Auto) (0.00-0.50) K/uL Baso # (Auto) (0.00-0.20) K/uL Immature Gran # (Auto) (0.01-0.20) K/uL PT (9.0-12.0) Seconds INR (0.9-1.1) APTT (21-31) Seconds PTT Ratio VBG pH 7.46 H (7.36-7.41) VBG pCO2 34 L (38-50) mmHg VBG pO2 25 mmHg VBG HCO3 24 mmol/L VBG O2 Saturation < 60.0 % VBG Base Excess 0.8 mEq/L Sodium (136-145) mmol/L Potassium (3.5-5.1) mmol/L Chloride (98-107) mmol/L Carbon Dioxide (21-32) mmol/L Anion Gap (3-11) BUN (6-23) mg/dl Creatinine (0.6-1.2) mg/dl Est Cr Clr Drug Dosing ml/min eGFR BUN/Creatinine Ratio (10-20) Glucose (70-99(Fasting)) mg/dl Lactate (0.4-2.0) mmol/L Calcium (8.6-10.3) mg/dl Magnesium (1.7-2.4) mg/dl Total Bilirubin (0.2-1.0) mg/dl Direct Bilirubin (0-0.2) mg/dl AST (13-39) U/L ALT (7-52) U/L Alkaline Phosphatase (34-104) U/L Troponin I High Sens (0-14) pg/ml Total Protein (6.0-8.3) gm/dl Albumin (3.4-5.0) gm/dl Procalcitonin (0-0.5) ng/ml TSH (0.300-4.500) uIu/ml Urine Color Yellow Urine Appearance Clear (Clear) Urine pH 5.5 (4.5-7.5) Ur Specific [place] 1.045 H (1.000-1.030) Urine Protein 1+ H (Negative) Urine Glucose (UA) Negative (Negative) Urine Ketones 1+ H (Negative) Urine Blood Negative (Negative) Urine Nitrite Negative (Negative) Urine Bilirubin Negative (Negative) Urine Urobilinogen Negative (Negative) Ur Leukocyte Esterase Negative (Negative) Urine WBC (Auto) 0-5 (0-5) /hpf Urine RBC (Auto) 3-5 H (0-2) /hpf U Hyaline Cast (Auto) 6-10 H (0-2) /lpf U Epithel Cells (Auto) 0-2 (0-2) /hpf Urine Bacteria (Auto) None Seen (None Seen) Urine Comment Anaplasma Smear See Comment A Anaplasma Comment Pos for Anaplasma Babesia Smear See Comment Lyme Disease Screen Negative (Negative) SARS-CoV-2 (PCR) (Negative) Influenza Type A (PCR) (Neg) Influenza Type B (PCR) (Neg) RSV (RT-PCR) (Neg) 11/16/24 Range/Units 20:29 WBC (4.8-10.8) K/ul RBC (4.20-5.40) M/uL Hgb (12.0-16.0) g/dl Hct (37.0-47.0) % MCV (80.0-100.0) fL MCH (25.0-34.0) pg MCHC (32.0-36.0) g/dL RDW Std Deviation (36.4-46.3) fL RDW Coeff of Ajay (11.5-14.5) % Plt Count (130-400) K/uL MPV (9.4-12.4) fL Immature Gran % (Auto) % Neut % (Auto) % Lymph % (Auto) % [place] % (Auto) % Eos % (Auto) % Baso % (Auto) % Neut # (Auto) (1.40-6.50) K/uL Lymph # (Auto) (1.20-3.40) K/uL [place] # (Auto) (0.11-0.59) K/uL Eos # (Auto) (0.00-0.50) K/uL Baso # (Auto) (0.00-0.20) K/uL Immature Gran # (Auto) (0.01-0.20) K/uL PT (9.0-12.0) Seconds INR (0.9-1.1) APTT (21-31) Seconds PTT Ratio VBG pH (7.36-7.41) VBG pCO2 (38-50) mmHg VBG pO2 mmHg VBG HCO3 mmol/L VBG O2 Saturation % VBG Base Excess mEq/L Sodium (136-145) mmol/L Potassium (3.5-5.1) mmol/L Chloride (98-107) mmol/L Carbon Dioxide (21-32) mmol/L Anion Gap (3-11) BUN (6-23) mg/dl Creatinine (0.6-1.2) mg/dl Est Cr Clr Drug Dosing ml/min eGFR BUN/Creatinine Ratio (10-20) Glucose (70-99(Fasting)) mg/dl Lactate (0.4-2.0) mmol/L Calcium (8.6-10.3) mg/dl Magnesium (1.7-2.4) mg/dl Total Bilirubin (0.2-1.0) mg/dl Direct Bilirubin (0-0.2) mg/dl AST (13-39) U/L ALT (7-52) U/L Alkaline Phosphatase (34-104) U/L Troponin I High Sens 20.4 H (0-14) pg/ml Total Protein (6.0-8.3) gm/dl Albumin (3.4-5.0) gm/dl Procalcitonin (0-0.5) ng/ml TSH (0.300-4.500) uIu/ml Urine Color Urine Appearance (Clear) Urine pH (4.5-7.5) Ur Specific [place] (1.000-1.030) Urine Protein (Negative) Urine Glucose (UA) (Negative) Urine Ketones (Negative) Urine Blood (Negative) Urine Nitrite (Negative) Urine Bilirubin (Negative) Urine Urobilinogen (Negative) Ur Leukocyte Esterase (Negative) Urine WBC (Auto) (0-5) /hpf Urine RBC (Auto) (0-2) /hpf U Hyaline Cast (Auto) (0-2) /lpf U Epithel Cells (Auto) (0-2) /hpf Urine Bacteria (Auto) (None Seen) Urine Comment Anaplasma Smear Anaplasma Comment Babesia Smear Lyme Disease Screen (Negative) SARS-CoV-2 (PCR) (Negative) Influenza Type A (PCR) (Neg) Influenza Type B (PCR) (Neg) RSV (RT-PCR) (Neg) Administered Medications Discontinued Medications Acetaminophen (Acetaminophen 325 Mg Tab) 650 mg PO NOW STA Stop: 11/16/24 17:41 Last Admin: 11/16/24 18:14 Dose: 650 mg Documented By: EFRAIN Sodium Chloride (Nss) 1,000 mls @ 999 mls/hr IV .Q1H1M ONE Stop: 11/16/24 20:05 Last Infusion: 11/16/24 21:26 Dose: Infused Documented By: Admin: 11/16/24 19:48 Dose: 999 mls/hr Documented By: EFRAIN Ceftriaxone Sodium (Rocephin) 2,000 mg in 50 mls @ 100 mls/hr IV NOW STA Stop: 11/16/24 19:34 Last Infusion: 11/16/24 21:26 Dose: Infused Documented By: Admin: 11/16/24 19:48 Dose: 100 mls/hr Documented By: EFRAIN Ioversol (Optiray 320 100ml) 90 ml IV ONCE ONE Stop: 11/16/24 19:24 Last Admin: 11/16/24 19:24 Dose: 90 ml Documented By: PATRICIA Imaging Data Attestation: I personally reviewed and interpreted this imaging study as follows: My Impression: 1 view chest x-ray was obtained in the emergency department. My interpretation is no free air or definite infiltrate, final report below. CT of the brain was obtained in the emergency department. My interpretation is no intracranial hemorrhage or mass effect, final report below. Radiologist's Impression: Chest X-Ray 11/16/24 17:21 INDICATION: Chest pain. TECHNIQUE: Frontal radiograph of the chest. COMPARISON: Radiograph from 12/23/2023. FINDINGS: Cardiomegaly. Mild pulmonary vascular congestion. No infiltrate, pleural effusion or pneumothorax. No acute osseous abnormality evident. IMPRESSION: Mild pulmonary vascular congestion. Electronically signed by Lion Castillo 11-16-2024 5:47 PM Abdomen/Pelvis CT 11/16/24 17:40 CT ABDOMEN and PELVIS with INTRAVENOUS CONTRAST HISTORY: Abdominal pain TECHNIQUE: CT abdomen and pelvis with contrast. IV CONTRAST: 100 mL of OMNIPAQUE 300 ENTERIC CONTRAST: Not Given COMPARISON: FINDINGS: LOWER CHEST: Pectus excavatum with inwardly deviating xiphoid process exerting mass effect upon the anterior heart. Small pleural fluid and bibasilar atelectasis. LIVER: No focal lesion identified. GALLBLADDER/BILIARY: Unremarkable gallbladder. No abnormal biliary dilatation. SPLEEN: Unremarkable. PANCREAS: Unremarkable. ADRENALS: Unremarkable. KIDNEYS: Small cortical cysts and renal scarring. No nephrolithiasis or hydronephrosis.. No stones or hydronephrosis identified. PERITONEUM/RETROPERITONEUM. No lymphadenopathy by size criteria. No aortic aneurysm. GASTROINTESTINAL: No obstruction. Normal appendix is identified. Mild gastric wall thickening and mild wall thickening of multiple loops of small bowel with mild fluid distention. REPRODUCTIVE: No suspicious pelvic mass identified. URINARY BLADDER: Mild circumferential wall thickening BONES: No acute findings. Left hip arthroplasty. IMPRESSION: Mild gastroenteritis suggested. Normal appendix is identified. Mild wall thickening of the urinary bladder could be due to cystitis. Please correlate with urinalysis. Electronically signed by Jose Coello 11-16-2024 9:[address] 11/16/24 17:40 CT HEAD: HISTORY: Altered mental status TECHNIQUE: Noncontrast CT examination of the head is performed. Coronal and sagittal reformats were created. COMPARISON: None FINDINGS: There is no evidence of intracranial hemorrhage, focal mass effect or midline shift. No fluid collection is identified. The ventricular system is midline and symmetric. No evidence of acute major vascular territory infarction. Encephalomalacia of the right cerebellum. The chronic white matter ischemic changes. No calvarial fracture is identified. Right frontal geoff hole. The paranasal sinuses and mastoids are well aerated. IMPRESSION: No acute intracranial process identified. Chronic findings as above. Electronically signed by Jose Coello 11-16-2024 9:00 PM Discharge Plan Visit Data Chief Complaint: Altered Mental Status Stated Complaint: AMS ED Provider: Valentín,Masoud R Discharge Problem: Anaplasmosis, Fever, Acute alteration in mental status Patient Disposition: Being Evaluated by Hospitalist Condition: Fair Forms Stand Alone Forms: [facility] Prescriptions Prescriptions: No Action rosuvastatin 5 mg tablet 5 mg PO DAILY gabapentin 300 mg capsule 300 mg PO BID aspirin 81 mg tablet,delayed release (DR/EC) 81 mg PO QPM multivitamin Tablet 1 tab PO QPM ascorbic acid (vitamin C) [Vitamin C] 1,000 mg Tablet 1 g PO QAM acetaminophen [Acetaminophen Extra Strength] 500 mg Tablet 500 mg PO BID PRN (Reason: fever/pain) levothyroxine 100 mcg Tablet 100 mcg PO DAILYBB metoprolol succinate 25 mg Tablet Extended Release 24 Hr 12.5 mg PO QPM loratadine 10 mg Tablet 10 mg PO PM cyclosporine [Restasis] 0.05 % Dropperette 1 drp OPB AMPM omega 2-bax-pni-fish oil [Fish Oil] 360-1,200 mg Capsule,Delayed Release(Dr/Ec) 1 cap PO Q OTHER DAY Rx Instructions: TAKES QPM omeprazole 10 mg Capsule,Delayed Release(Dr/Ec) 10 mg PO DAILYBB celecoxib 200 mg capsule 200 mg PO PM valacyclovir 1 gram tablet 1,000 mg PO DIRECTED PRN (Reason: Cold Sores) mometasone 50 mcg/actuation spray,non-aerosol 2 spray INTRANASAL DAILY calcium carbonate-vitamin D3 [Calcium 600 with Vitamin D3] 600 mg(1,500mg) - 500 unit Capsule 1 cap PO BID latanoprost 0.005 % Drops 1 drp OPHTHALMIC (EYE) QPM flaxseed oil 1,000 mg Capsule 1,000 mg PO QAM Rx Instructions: administer with a meal montelukast [Singulair] 10 mg Tablet 10 mg PO DAILY azelastine 137 mcg (0.1 %) Erwin,Non-Aerosol 2 spray INTRANASAL BID Rx Instructions: administer into each nostril Turmeric/Curcumin/Bioperine 2,000 mg PO QAM Referrals Referrals: Caitlin Olivera MD [Primary Care Provider] -
[2024-11-16 17:52] LABS: Basophils # (auto) 0.02 K/uL (0.00-0.20); Basophils % (auto) 0.6 %; Hematocrit (blood only) 39.5 % (37.0-47.0); Hemoglobin 13.4 g/dl (12.0-16.0); Immature Granulocytes # (auto) 0.02 K/uL (0.01-0.20); Immature Granulocytes % (auto) 0.6 %; Lymphocytes # (auto) 0.32 K/uL (1.20-3.40); Lymphocytes % (auto) 9.1 %; Mean Corpuscular Hemoglobin 31.2 pg (25.0-34.0); Mean Corpuscular Hgb Conc 33.9 g/dL (32.0-36.0); Mean Corpuscular Volume 92.1 fL (80.0-100.0); Mean Platelet Volume 9.8 fL (9.4-12.4); Monocytes # (auto) 0.09 K/uL (0.11-0.59); Monocytes % (auto) 2.6 %; Neutrophils # (auto) 3.05 K/uL (1.40-6.50); Neutrophils % (auto) 87.1 %; Platelet Count 136 K/uL (130-400); RDW Coefficient of Variation 12.9 % (11.5-14.5); RDW Standard Deviation 43.3 fL (36.4-46.3); Red Blood Count 4.29 M/uL (4.20-5.40)
[2024-11-16 17:54] LABS: Base Excess VBG 0.8 mEq/L; HCO3 VBG 24 mmol/L; Oxygen Saturation VBG < 60.0 %; PCO2 VBG 34 mmHg (38-50); PO2 VBG 25 mmHg; pH VBG 7.46 (7.36-7.41)
[2024-11-16 18:10] LABS: BUN Creatinine Ratio 31.6 (10-20); Bilirubin Direct 0.2 mg/dl (0-0.2); Bilirubin,Total 0.7 mg/dl (0.2-1.0); Calcium 9.1 mg/dl (8.6-10.3); Creatinine Clr Calc Pharmacy 53.5 ml/min; Potassium 3.9 mmol/L (3.5-5.1); Total Protein 6.8 gm/dl (6.0-8.3)
[2024-11-16] MEDS: ACETAMINOPHEN 325 MG TAB PO STA (18:14)
[2024-11-16 18:16] LABS: Troponin I High Sensitivity 20.8 pg/ml (0-14)
[2024-11-16 18:23] LABS: Influenza A virus by PCR Negative (Neg); Influenza B virus by PCR Negative (Neg); RSV by PCR Negative (Neg); SARS CoV2 RNA(COVID-19) Ceph NEGATIVE (Negative)
[2024-11-16 18:27] LABS: INR 1.1 (0.9-1.1); Partial Thromboplastin Time 28 Seconds (21-31); Prothrombin Time 11.4 Seconds (9.0-12.0)
[2024-11-16] MEDS: OPTIRAY 320 100ml IV ONE (19:24)
[2024-11-16] MEDS: SODIUM CHLORIDE 0.9% 1,000 ML IV ONE (19:48)
[2024-11-16] MEDS: cefTRIAXone SODIUM 2,000 MG/50 ML BAG IV STA (19:48)
[2024-11-16 20:51] LABS: Appearance Urine Clear (Clear); Bacteria Urine Automated None Seen (None Seen); Bilirubin Urine Negative (Negative); Blood Urine Negative (Negative); Color Urine Yellow; Epithelial Cell Urine Auto 0-2 /hpf (0-2); Glucose Urine UA Negative (Negative); Ketones Urine 1+ (Negative); Leukocyte Esterase Urine Negative (Negative); Nitrite Urine Negative (Negative); Protein Urine 1+ (Negative); Specific Gravity Urine 1.045 (1.000-1.030); Urobilinogen Urine Negative (Negative); WBC Urine Automated 0-5 /hpf (0-5); pH Urine 5.5 (4.5-7.5)
--- NOTE | 2024-11-16 21:01 | CT Scan Report ---
CT ABDOMEN and PELVIS with INTRAVENOUS CONTRAST HISTORY: Abdominal pain TECHNIQUE: CT abdomen and pelvis with contrast. IV CONTRAST: 100 mL of OMNIPAQUE 300 ENTERIC CONTRAST: Not Given COMPARISON: FINDINGS: LOWER CHEST: Pectus excavatum with inwardly deviating xiphoid process exerting mass effect upon the anterior heart. Small pleural fluid and bibasilar atelectasis. LIVER: No focal lesion identified. GALLBLADDER/BILIARY: Unremarkable gallbladder. No abnormal biliary dilatation. SPLEEN: Unremarkable. PANCREAS: Unremarkable. ADRENALS: Unremarkable. KIDNEYS: Small cortical cysts and renal scarring. No nephrolithiasis or hydronephrosis.. No stones or hydronephrosis identified. PERITONEUM/RETROPERITONEUM. No lymphadenopathy by size criteria. No aortic aneurysm. GASTROINTESTINAL: No obstruction. Normal appendix is identified. Mild gastric wall thickening and mild wall thickening of multiple loops of small bowel with mild fluid distention. REPRODUCTIVE: No suspicious pelvic mass identified. URINARY BLADDER: Mild circumferential wall thickening BONES: No acute findings. Left hip arthroplasty. IMPRESSION: Mild gastroenteritis suggested. Normal appendix is identified. Mild wall thickening of the urinary bladder could be due to cystitis. Please correlate with urinalysis. Electronically signed by Jose Coello 11-16-2024 9:00 PM
--- NOTE | 2024-11-16 21:01 | CT Scan Report ---
CT HEAD: HISTORY: Altered mental status TECHNIQUE: Noncontrast CT examination of the head is performed. Coronal and sagittal reformats were created. COMPARISON: None FINDINGS: There is no evidence of intracranial hemorrhage, focal mass effect or midline shift. No fluid collection is identified. The ventricular system is midline and symmetric. No evidence of acute major vascular territory infarction. Encephalomalacia of the right cerebellum. The chronic white matter ischemic changes. No calvarial fracture is identified. Right frontal geoff hole. The paranasal sinuses and mastoids are well aerated. IMPRESSION: No acute intracranial process identified. Chronic findings as above. Electronically signed by Jose Coello 11-16-2024 9:00 PM
--- NOTE | 2024-11-16 22:22 | History & Physical Report ---
Date of Service November 16, 2024 Assessment & Plan (1) Acute metabolic encephalopathy: (2) Anaplasmosis: (3) Transaminitis: (4) Spasm of back muscles: (5) Elevated troponin: Plan Patient is an 79-year-old female with past medical history of CVA, hypothyroidism, GERD, hypertension, chronic back pain. Patient presented via EMS after her family noted her to be confused this afternoon. Patient stated she has had significant back spasms and took an oxycodone this morning (only takes approximately every 6 months and no history of reaction). Metabolic encephalopathy thought to be secondary to anaplasmosis. #Metabolic encephalopathy/anaplasmosis/mild transaminitis -with leukopenia, WC 3.50. Metabolic encephalopathy 2/2 anaplasmosis (anaplasma smear positive). Pro-Kike 0.25. AST 76, ALT 57. Temp 39.6 C. No other sources of metabolic encephalopathy found at time of admission No signs of infection; skin without or erythema, UA negative, CXR negative. VBG WNL. TSH WNL. Electrolytes stable. Head CT and AP CT negative. - doxycycline IV 100 mg BID ordered with AMS and fever (1st dose PM 11/16) - transition to PO when confusion and fever improve - peripheral smear pending - Ammonia level ordered - tick panel pending - hold gabapentin until confusion resolves - avoid further Tylenol with transaminitis - trend CBC and CMP #Muscle spasm/back pain - chronic, acutely exacerbated by recent heavy lifting and anaplasmosis above - Voltaren and Kpad prn ordered - continue home Celebrex prn - holding gabapentin - avoid muscle relaxants and opioids with AMS above #elevated troponin - suspect 2/2 demand/stress. 20.8 -> 20.4. Patient denies any chest pain. - EKG ordered - repeat trop with AM labs to ensure downtrend #History CVAstable. Head CT negative. Continue aspirin, statin #HypothyroidismTSH stable. Continue levothyroxine #seasonal allergiesstable Continue home Claritin, nasal spray, inhaler #Hypertensionstable Continue metoprolol #GERDstable Continue PPI #Hx of MILVIA - patient no longer uses CPap/BiPap. VTE ppx: SCDs, low risk Dispo: med surg Admission and Anticipated Discharge Date Admission Date: 11/16/24 History of Present Illness Chief Complaint: AMS Primary Care Provider: Caitlin Olivera MD Patient is an 79-year-old female with past medical history of CVA, hypothyroidism, GERD, hypertension, chronic back pain. Patient presented via EMS after her family noted her to be confused this afternoon. Patient stated she has had significant back spasms and took an oxycodone this morning (only mauricio es approximately every 6 months and no history of reaction). Cause of metabolic encephalopathy undetermined at time of admission, however differential includes but not limited to oxycodone side effect, tickborne illness, infection (however no signs of infection found on admission). Patient received 1 dose of Rocephin in the ED has metabolic encephalopathy thought to be secondary to infection - however UA negative, CXR negative, no signs of cellulitis. Patient seen at bedside. She is alert and oriented x 4, however does not remember being brought in by EMS. She stated on Saturday she had a libertarian so she took a muscle relaxer for her back spasms. Back spasms persisted through today so she took an oxycodone this morning. Noted in PDMP that patient had a prescription for 12 oxycodone falls 03/30, patient states she only needs them approximately every 6 months. She recently moved back from [place] and was lifting heavy things resulting in the back spasms. She denies any history of re action with oxycodone before. She otherwise feels well, denies any dizziness, lightheadedness, rhinorrhea, congestion, cough, shortness of breath, chest pain, abdominal pain, dysuria, hematuria, numbness or tingling, erythema of skin. She stated she does sometimes have difficulty urinating due to her back pain, however no recent change, follows with urology. She denies any history of tick bites however goes on an evening walk everyday outside. She stated she has been compliant on her home medications, and is due for her evening medications. Of note - patient is [facility] PCP patient however insurance non-par with [facility]. Will remain under [facility] service. Allergies Allergy/AdvReac Type Severity Reaction Status Date / Time No Known Allergies Allergy Verified 11/16/24 18:20 Home Medications Medication Instructions Recorded Confirmed Type acetaminophen 500 mg tablet 500 mg PO BID PRN fever/pain 01/19/19 11/16/24 History (Acetaminophen Extra Strength) ascorbic acid (vitamin C) 1,000 mg 1 g PO QAM 01/19/19 11/16/24 History tablet (Vitamin C) cyclosporine 0.05 % eye drops in a 1 drp OPB AMPM 01/19/19 11/16/24 History dropperette (Restasis) levothyroxine 100 mcg tablet 100 mcg PO DAILYBB 01/19/19 11/16/24 History loratadine 10 mg tablet 10 mg PO PM 01/19/19 11/16/24 History metoprolol succinate 25 mg 12.5 mg PO QPM 01/19/19 11/16/24 History tablet,extended release 24 hr omega-3 360 xe-cmd-weq-fish oil 1 cap PO Q OTHER DAY 01/19/19 11/16/24 History 1,200 mg capsule,delayed release (Fish Oil) omeprazole 10 mg capsule,delayed 10 mg PO DAILYBB 01/30/19 11/16/24 History release calcium 600 mg (as 1 cap PO BID 01/11/21 11/16/24 History carbonate)-vitamin D3 12.5 mcg (500 unit) capsule (Calcium with Vit D3) celecoxib 200 mg capsule 200 mg PO PM 01/11/21 11/16/24 History mometasone 50 mcg/actuation nasal 2 spray intranasal DAILY 01/11/21 11/16/24 History spray valacyclovir 1 gram tablet 1,000 mg PO DIRECTED PRN Cold 01/11/21 11/16/24 History Sores aspirin 81 mg tablet,delayed 81 mg PO QPM 12/23/23 11/16/24 History release gabapentin 300 mg capsule 300 mg PO BID 12/23/23 11/16/24 History multivitamin 1 tab PO QPM 12/23/23 11/16/24 History rosuvastatin 5 mg tablet 5 mg PO DAILY 12/23/23 11/16/24 History Turmeric/Curcumin/Bioperine 2,000 mg PO QAM 11/16/24 11/16/24 History azelastine 137 mcg (0.1 %) nasal 2 spray intranasal BID 11/16/24 11/16/24 History spray flaxseed oil 1,000 mg capsule 1,000 mg PO QAM 11/16/24 11/16/24 History latanoprost 0.005 % eye drops 1 drp ophthalmic (eye) QPM 11/16/24 11/16/24 History montelukast 10 mg tablet 10 mg PO DAILY 11/16/24 11/16/24 History (Singulair) Past Med/Surg History Problem List (Updated 11/16/24 @ 23:20 by Eli Padilla PA-C) Elevated troponin Spasm of back muscles Transaminitis Acute metabolic encephalopathy Acute alteration in mental status (Acute) Fever (Acute) Anaplasmosis (Acute) Dysphagia Encounter for pre-operative examination Medical History Sinus bradycardia Lumbar spinal stenosis Ambulatory dysfunction Compression fracture of L2 Osteoarthritis Spinal stenosis Degenerative disc disease Chronic back pain GERD (gastroesophageal reflux disease) Hypothyroidism Anxiety Irregular heart rate reason metoprolol Sleep apnea doesnt use CPAP as ordered Surgical History History of section History of lumpectomy of right breast benign History of dilatation and curettage History of open reduction and internal fixation (ORIF) procedure clavicle fx--hardware removed History of total left hip replacement History of colonoscopy History of wisdom tooth extraction History of cardiac cath 2013 @ [place]--no stents Family History Other Family history not known due to adoption Social History Smoking Status: Never smoker Second Hand Exposure: No; Do You Dip or Chew Tobacco: No; Tobacco Cessation Education Requested by Patient: No Hx Alcohol Use: Yes Alcohol type: wine and hard liquor Hx Substance Use: No Preferred Language: Slovenian Communication Ability: Effective Residence Manager Required: No Beliefs That Will Affect Care: None Current Living Situation: Family Feels Safe at Home: Yes Safety Concerns: Feels Safe At This Time Assistive Devices: Glasses and Walker Review of Systems Review of Systems: see HPI Physical Exam Physical Exam: The patient is awake, alert and oriented 3, well developed and well nourished, normocephalic and atraumatic, in no acute distress. Non-toxic appearing. HEENT- EOMI, mucous membranes moist. Hearing grossly intact. Heart-normal S1 and S2. No murmurs, rubs or gallops. Lungs-clear bilaterally, no respiratory distress, no accessory muscle use. Abdomen-normal bowel sounds and soft. No ascites noted. Non-tender. Extremities- no clubbing, cyanosis, or edema. Rheumatologic-normal range of motion. Psychiatric-normal affect. Skin: no rashes, warm and dry no ulcers, no wound and no erythema Results & Data Results & Data Vital Signs (Past 12 Hours) Vital Signs Temp Pulse Pulse Resp BP BP Pulse Ox 11/16/24 21:15 91 H 18 134/72 92 11/16/24 21:06 74 11/16/24 21:00 77 25 H 150/78 H 91 11/16/24 20:30 74 19 127/60 93 11/16/24 20:15 76 17 148/71 H 94 11/16/24 20:13 37.5 C 11/16/24 20:00 109 H 24 151/82 H 93 11/16/24 19:51 77 22 94 11/16/24 19:45 145/66 H 11/16/24 19:45 145/66 H 11/16/24 19:42 81 25 H 93 11/16/24 19:39 80 30 H 11/16/24 19:15 139/64 11/16/24 19:15 139/64 11/16/24 19:15 139/64 11/16/24 19:15 139/64 11/16/24 19:15 84 25 H 92 11/16/24 19:12 80 28 H 92 11/16/24 19:06 83 28 H 93 11/16/24 19:00 135/50 L 11/16/24 18:54 83 38 H 91 11/16/24 18:53 140/64 11/16/24 18:51 106 H 35 H 91 11/16/24 18:48 81 33 H 11/16/24 18:30 82 29 H 92 11/16/24 18:15 80 27 H 156/69 H 93 11/16/24 18:13 81 31 H 156/69 H 92 11/16/24 18:00 137/105 H 11/16/24 17:57 82 42 H 11/16/24 17:54 86 28 H 11/16/24 17:42 85 37 H 11/16/24 17:41 96 11/16/24 17:40 136/83 11/16/24 17:39 84 40 H 92 11/16/24 17:35 82 20 136/83 93 11/16/24 17:33 79 26 H 93 11/16/24 17:29 92 11/16/24 17:29 39.6 C H 89 29 H 157/69 H 92 11/16/24 17:22 39.6 C H 89 29 H 157/69 H 91 11/16/24 17:22 84 11/16/24 17:21 83 31 H 91 O2 Del Method 11/16/24 21:15 11/16/24 21:06 11/16/24 21:00 11/16/24 20:30 11/16/24 20:15 11/16/24 20:13 11/16/24 20:00 11/16/24 19:51 11/16/24 19:45 11/16/24 19:45 11/16/24 19:42 11/16/24 19:39 11/16/24 19:15 11/16/24 19:15 11/16/24 19:15 11/16/24 19:15 11/16/24 19:15 11/16/24 19:12 11/16/24 19:06 11/16/24 19:00 11/16/24 18:54 11/16/24 18:53 11/16/24 18:51 11/16/24 18:48 11/16/24 18:30 11/16/24 18:15 Room Air 11/16/24 18:13 11/16/24 18:00 11/16/24 17:57 11/16/24 17:54 11/16/24 17:42 11/16/24 17:41 Room Air 11/16/24 17:40 11/16/24 17:39 11/16/24 17:35 Room Air 11/16/24 17:33 11/16/24 17:29 Room Air 11/16/24 17:29 Room Air 11/16/24 17:22 Room Air 11/16/24 17:22 11/16/24 17:21 Laboratory Results reviewed CBC, CMP, VBG, PT/INR, lactate, magnesium, troponin, procalcitonin, UA, tick panel Diagnostic Findings reviewed head CT, AP CT, CXR Medications Administered EDTylenol 650 Mg p.o., 1L NSS bolus, Rocephin 2 g IV Code Status & VTE Plan Code Status full VTE Prophylaxis Plan VTE Prophylaxis will be ordered: Yes Supervising Physician Co-Signing Physician Notes I personally saw and examined the patient. I independently reviewed the labs, EKG, imaging, problem list, medication list, past medical history and family history. I verified all pierre points and agree with Eli Padilla PA-C with the following exceptions and/or additions: 79 year old female presents to the ER with altered mental state, fever and generalized muscle aches O/E HS RRR, no murmurs, Chest CTAB, Abdo SNT A/P Anaplasmosis - suspect her symptoms are secondary to this with mildly elevated transaminitis, IV doxycycline until afebrile then switch to PO PG Care Time/CCT Total # of Minutes Spent Total Time Spent with Patient: Total time spent is greater than 50% in coordination of care (as documented) at patient's floor/unit and/or counseling patient: Coding Level of Care Code 30695 INT INP/OBS CARE 3/75MIN Diagnoses Acute metabolic encephalopathy G93.41 Anaplasmosis A77.49 Transaminitis R74.01 Spasm of back muscles M62.830 Elevated troponin R79.89
[2024-11-16 22:47] LABS: Anaplasmosis Smear(Rpt to DOH) Pos for Anaplasma
[2024-11-16 22:55] LABS: Thyroid Stimulating Hormone 0.894 uIu/ml (0.300-4.500)
[2024-11-16] MEDS: DOXYCYCLINE HYCLATE 100 MG in DEXTROSE 5% MINI-B 100 ML IV STA (23:28)
[2024-11-16] MEDS: DOXYCYCLINE HYCLATE 100 MG CAP PO STA (23:29)
[2024-11-17] MEDS: ACETAMINOPHEN 325 MG TAB PO STA (01:04)
[2024-11-17] MEDS ORDERED: DOCUSATE SODIUM 100 MG CAP PO PRN (01:32)
[2024-11-17] MEDS ORDERED: ONDANSETRON INJ 2 MG/ML 2 ML VIAL IV PRN (01:32)
[2024-11-17] MEDS ORDERED: DICLOFENAC SOD 1% GEL 100 GM TUBE EXT PRN (01:32)
[2024-11-17] MEDS ORDERED: ARTIFICIAL TEARS OP PRN (01:48)
[2024-11-17] MEDS: ASPIRIN 81 MG ECTAB PO SCH (03:49)
[2024-11-17] MEDS: CeleBREX 200 MG CAP PO SCH (03:49)
[2024-11-17] MEDS: METOPROLOL SUCC 25MG EXT REL TAB PO SCH (03:49)
[2024-11-17] MEDS: LATANOPROST 0.005% OP SOLN 2.5 ML BTL OP SCH (03:50)
[2024-11-17] MEDS: AZELASTINE HCL 0.1% NASAL 200 SPRAYS/27,400 MCG BTL NAE SCH (03:50)
[2024-11-17] MEDS: LEVOTHYROXINE SODIUM 100 MCG TABLET PO SCH (03:56)
[2024-11-17] MEDS: ACETAMINOPHEN 325 MG TAB PO ONE (03:56)
[2024-11-17] MEDS: PANTOprazole 40 MG TAB PO SCH (03:56)
[2024-11-17 06:38] LABS: Hematocrit (blood only) 34.7 % (37.0-47.0); Mean Corpuscular Hemoglobin 31.1 pg (25.0-34.0); Mean Corpuscular Hgb Conc 34.6 g/dL (32.0-36.0); Mean Corpuscular Volume 89.9 fL (80.0-100.0); Platelet Count 113 K/uL (130-400); RDW Coefficient of Variation 12.8 % (11.5-14.5); RDW Standard Deviation 42.2 fL (36.4-46.3); Red Blood Count 3.86 M/uL (4.20-5.40); White Blood Count 3.76 K/ul (4.8-10.8)
[2024-11-17 07:10] LABS: Albumin Globulin Ratio 1.5 (0.9-2); BUN Creatinine Ratio 30.3 (10-20); Bilirubin,Total 0.6 mg/dl (0.2-1.0); Calcium 8.1 mg/dl (8.6-10.3); Creatinine Clr Calc Pharmacy 64.2 ml/min; Globulin 2.3 gm/dl (2.5-4.0); Total Protein 5.8 gm/dl (6.0-8.3)
[2024-11-17 07:11] LABS: Basophils # (auto) 0.01 K/uL (0.00-0.20); Basophils % (auto) 0.3 %; Immature Granulocytes # (auto) 0.01 K/uL (0.01-0.20); Immature Granulocytes % (auto) 0.3 %; Lymphocytes # (auto) 0.35 K/uL (1.20-3.40); Lymphocytes % (auto) 9.3 %; Monocytes % (auto) 2.7 %; Neutrophils # (auto) 3.29 K/uL (1.40-6.50); Neutrophils % (auto) 87.4 %; Ovalocytes 1+
[2024-11-17 07:16] LABS: Troponin I High Sensitivity 20.1 pg/ml (0-14)
--- OUTSIDE RECORDS SUMMARY | 2024-11-17 07:20 | External Medical Summary | Summary of Care ---
Author Name Unknown Organization [facility] Address [address] [place] [address] Phone [phone] Care Team Providers Care Polygraph Examiner Name Role Phone Caitlin Olivera MD Primary Care Provider [phone] Reason for Visit * Reason Onset Date Comments Medication Refill 04/20/2024 Encounter Details Date Type Department Care Team (Late st Contact Info) Description 04/20/2024 [address] [facility] [address] [place] [address] Caitlin Olivera MD [address] [facility] [address] Allergies Active Allergy Reactions Criticality Noted Date Comments Pollen Other (Please comment) High 01/10/2018 Grass, pine, and dustmites documented as of this encounter (statuses as of 06/11/2024) Medications loratadine (CLARITIN) 10 MG Tablet Take 1 Tablet by mouth in the morning. Active vitamin c (ASCORBIC ACID) 500 MG Tablet Take 2 Tablets by mouth in the morning. Active montelukast (SINGULAIR) 10 MG Tablet Take 1 Tablet by mouth at bedtime. Active cycloSPORINE 0.05 % Ophthalmic Emulsion 1 Drop in the morning and 1 Drop before bedtime. Active metoprolol succinate XL (TOPROL XL) 25 MG TB24 Take 0.5 Tablets by mouth in the morning. Active [place]-3 Fatty Acids (FISH OIL) 1000 MG Capsule Take 1 Capsule by mouth in the morning. Active Turmeric 450 MG Oral Capsule Take 1 Tab by mouth daily. Active Omeprazole 20 MG Oral Capsule Delayed Release Take 1 Cap by mouth daily. 30 Cap 2 1 Active valACYclovir HCl 1 GM Oral Tablet (Valtrex)Indicatio ns:Herpes labialis Take 2 tabs twice daily x1 day as needed for cold sores 4 Tablet 5 1 Active Flax Seed Oil 1000 MG Oral Capsule Take 1 Capsule by mouth in the morning. 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 with food.. 100 Tablet 5 2 Active Albuterol Sulfate HFA 108 (90 Base) MCG/ACT Inhalation Aerosol Solution Inhale 2 Puffs by mouth every 6 hours as needed (sob, cough). 18 g 3 4 Active Mometasone Furoate 50 MCG/ACT Nasal SuspensionIndicati ons:Allergic rhinitis, unspecified seasonality, unspecified trigger USE 2 SPRAYS IN EACH NOSTRIL IN THE MORNING 51 g 3 4 Active Multivitamin Adult Oral Tablet Chewable 1 Tablet once. 4 Active Latanoprost 0.005 % Ophthalmic Solution (Xalatan) 1 Drop at bedtime. Active Polyethylene Glycol 3350 17 GM Oral Packet (MiraLax) Take 1 Packet by mouth in the morning. Active Benefiber Drink Mix Oral Packet Take 1 Packet by mouth in the morning. Active Celecoxib 200 MG Oral Capsule (CeleBREX)Indicati ons:Spinal stenosis of lumbar region without neurogenic claudication,Osteo arthritis of right hip, unspecified osteoarthritis type Take 1 Capsule by mouth in the morning. 90 Capsule 3 4 Active Azelastine HCl 0.1 % Nasal Solution (Astelin) Administer 1 Hollis into nostril in the morning and 1 Hollis before bedtime. 30 mL 12 4 Active Levothyroxine Sodium 100 MCG Oral Tablet (Levoxyl)Indicatio ns:Acquired hypothyroidism Take 1 Tablet by mouth daily first thing in the morning. (at least 30 min prior to breakfast or other meds) 90 Tablet 3 4 Active Rosuvastatin Calcium 5 MG Oral Tablet (Crestor)Indicatio ns:Atherosclerosis of both carotid arteries Take 1 tablet by mouth daily 90 Tablet 3 4 Active Clobetasol Propionate 0.05 % External Ointment (Temovate)Indicati ons:Vulvar dermatitis,Lichen sclerosus of vulva Apply to the affected area at bedtime 30 g 1 4 Active Gabapentin 300 MG Oral Capsule (Neurontin)Indicat ions:Spinal stenosis of lumbar region without neurogenic claudication Take 1 Capsule by mouth in the morning and 1 Capsule before bedtime. 180 Capsule 3 4 Active NATURAL SUPPLEMENT Take by mouth daily. Total restore Active tiZANidine HCl 6 MG Oral Capsule Take 6 mg by mouth in the morning and 6 mg at noon and 6 mg before bedtime. Active oxyCODONE HCl 5 MG Oral Capsule (Oxy IR)Indications:Mus gloria spasm of back Take 1 Capsule by mouth every 6 hours as needed for Pain, Severe. 12 Tablet 4 Active Budesonide-Formote rol Fumarate 80-4.5 MCG/ACT Inhalation Aerosol (Symbicort)Indicat ions:Wheezing on auscultation Inhale 2 Puffs by mouth in the morning and 2 Puffs before bedtime. 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 Seasonal allergic rhinitis due to pollen 018 Lumbar spinal stenosis 01/10/2018 documented as of this encounter (statuses as of 06/11/2024) Resolved Problems Problem Noted Date Diagnosed Date Resolved Date Palpitations 01/10/2018 11/28/2018 documented as of this encounter (statuses as of 06/11/2024) Immunizations Name Administration Dates Next Due Pneumococcal Conjugate Vaccine, 20-valent (Prevn ar20) 03/05/2023 Seasonal Influenza, High Dos e, Trivalent, PF, IM (Fluzone HD) 03/30/2024 Seasonal Influenza, PF, 6 M & above, IM , (FluLaval or Fluzone) 03/22/2020 Seasonal Influenza, Quadrivalent Hd (Fluzone Hd) 03/05/2023 Seasonal Influenza, Trivalen t, Adjuvanted, 65+ YRS, PF, (Fluad) 03/25/2019 Zoster Vaccine Recombinant (Shingrix) 03/22/2020 ,12/01/2019 documented as of this encounter Social History Tobacco Use Types Packs/Day Years Used Date Smoking Tobacco: Never Passive Smoke Exposure: Yes Smokeless Tobacco: Never Alcohol Use Standard Drinks/Week Comments Yes 2 (1 standard drink = 0.6 oz pur e alcohol) only socially PHQ-2 Answer Date Recorded PHQ Adult Total Score 0 03/05/2023 Hunger Vital Sign Answer Date Recorded Within the past 12 months, y ou worried that your food would run out before you got the money to buy more. Never true 03/05/20 23 Within the past 12 months, t he food you bought just didn't last and you didn't have money to get more. Never true 03/05/2023 Childcare Answer Date Recorded Do you feel overwhelmed with taking care of a child, family member or friend? No 03/05/2023 Does your family need help f inding childcare? (Household - for ages 0-17 years) Not on file 03/05/2023 Clothing Answer Date Recorded Have you been unable to get clothing when it was really needed? No 03/05/2023 Is your family able to get c lothes or diapers when needed? (Household - for ages 0-17 years) Not on file 03/05/2023 Personal Safety Answer Date Recorded Do you feel unsafe or have concerns for your saf ety? No 03/05/2023 Do you have concerns for you r family's safety? (Household - for ages 0-17 years) Not on file 03/05/2023 Utilities Answer Date Recorded Do you have trouble paying y our heating, water, or electric bill? (Adult - for ages 18 years and over) Not on file 03/12/2024 Is your family able to pay t he heat, water, or electric bill? (Household - for ages 0-17 years) Not on file 03/12/2024 Does your family have access to good internet? (Household - for ages 0-17 years) Not on file 03/12/2024 Employment Status Answer Date Recorded Are you unemployed or without regular income? No 03/05/2023 Does the household have a re gular source of income? (Household - for ages 0-17 years) Not on file 03/05/2023 Social Connections Answer Date Recorded How often do you feel lonely or isolated from those around you? (Adult - for ages 18 years and over) Not on file 03/12/2024 Financial Resource Strain Answer Date R ecorded Do you have any trouble payi ng for your medications, or do you think you might in the future? No 03/05/2023 Does your family have troubl e paying for medicine? (Household - for ages 0-17 years) Not on file 03/05/2023 Transportation Needs Answer Date Record ed READ ONLY Do you have troubl e getting a ride to medical visits or work? Never True 03/05/2023 Does your family have a hard time getting a ride to doctors visits? (Household - for ages 0-17 years) Not on file 03/05/2023 Has lack of transportation k ept you from medical appointments, meetings, work, or from getting things needed for daily living? Check all that apply. (Adult - for ages 18 years and over) Not on file 03/05/2023 Do you (or your family) have trouble finding or paying for a ride (transportation)? (Household - for ages 0-17 years) Not on file 03/05/2023 Housing Stability Answer Date Recorded Do you currently live in a s helter or have no steady place to sleep at night? No 03/05/2023 READ ONLY Do you think you a re at risk of becoming homeless? No 03/05/2023 Does your family worry about paying for your home or becoming homeless? (Household - for ages 0-17 years) Not on file 0 03/05/2023 Are you homeless or worried that you might be in the future? (Adult - for ages 18 years and over) Not on file Are you (or your family) nubia eless or worried that you might be in the future? (Household - for ages 0-17 years) Not on file Food Insecurity Answer Date Recorded Do you need food for this week? No 03/05/2023 Are you able to get enough f ood for your family? (Household - for ages 0-17 years) Not on file 03/05/2023 Does your family need food t his week? (Household - for ages 0-17 years) Not on file 03/05/2023 Do you always have enough fo od for your family? (Household - for ages 0-17 years) Not on file 03/05/2023 Comments No Sex and Gender Information Value Date Recorded Sex Assigned at Female 03/05/2023 1:01 PM EDT Legal Sex Female 8:05 AM EDT Gender Identity Female 03/05/2023 1:01 PM EDT Sexual Orientation Straight 03/05/2023 1: 01 PM EDT documented as of this encounter Plan of Treatment Health Maintenance Due Date Last Done Comments Adult Wellness Visit 2010 COVID-19 Vaccine ( season) 2024 02/26/2022, 04/20/2021, 04/20/2021, Additional history exists Depression Monitoring 03/05/2024 03/05/2023 TSH 03/30/2025 03/30/2024, 09/0 11/2022, 03/01/2022, Additional history exists DTap/Tdap Vaccines (2 - Td or Tdap) 01/11/2028 01/10/2018 (Declined) DXA Scan 08/21/2029 08/21/2022, 08/02, 08/18/2020, Additional history exists Zoster Vaccines Completed 03/22/2020, 12/01/2019 Pneumococcal Vaccine: 65+ Years Completed 03/05/2023, 09/26/2017, 08/01/2015, Additional history exists Influenza Vaccine (FLU shot) Completed , 03/05/2023, 03/22/2020, Additional history exists HPV (Gardasil) Vaccine Aged Out No lo nger eligible based on patient's age to complete this topic Hepatitis B Vaccine Aged Out No longe r eligible based on patient's age to complete this topic MENINGOCOCCAL (MENACTRA/MENVEO) Aged Out No longer eligible based on patient's age to complete this topic documented as of this encounter Medical Devices Not on filedocumented as of this encounter Care Teams Polygraph Examiner Relationship Specialty Start Date End Date Caitlin Olivera MD [address] [place] [address] PCP - General Family Medicine 02/11/24 documented as of this encounter
--- NOTE | 2024-11-17 09:29 | Electrocardiogram Report ---
Test Reason : Blood Pressure : */* mmHG Vent. Rate : 80 BPM Atrial Rate : 80 BPM P-R Int : 186 ms QRS Dur : 86 ms QT Int : 362 ms P-R-T Axes : 63 -52 57 degrees QTcB Int : 417 ms Normal sinus rhythm Possible Left atrial enlargement Left anterior fascicular block Septal infarct (cited on or before 11-Jan-2021) Abnormal ECG When compared with ECG of 23-Dec-2023 16:08, Questionable change in initial forces of Anterior leads Confirmed by Masoud Holly ([id number]) on 11/17/2024 9:29:23 AM Referred By: REFERRED SELF Confirmed By: Masoud Holly
[2024-11-17] MEDS: FLUTICASONE PROPIONATE NA SPR 16 GM BTL SCH (09:30)
[2024-11-17] MEDS: DOXYCYCLINE HYCLATE 100 MG in DEXTROSE 5% MINI-B 100 ML IV SCH (09:31)
[2024-11-17] MEDS: MONTELUKAST SODIUM 10 MG TABLET PO SCH (09:31)
[2024-11-17] MEDS: ROSUVASTATIN CALCIUM 5 MG TAB PO SCH (09:31)
[2024-11-17] MEDS: ACETAMINOPHEN 500 MG TAB PO PRN (09:35)
[2024-11-17] MEDS: POTASSIUM CHLORIDE CRTAB 20 MEQ TABCR PO SCH (09:36)
--- NOTE | 2024-11-17 10:57 | Hospitalist Progress Note ---
Date of Service November 17, 2024 Assessment & Plan (1) Acute metabolic encephalopathy: (2) Anaplasmosis: (3) Transaminitis: (4) Spasm of back muscles: (5) Elevated troponin: Plan Patient is an 79-year-old female with past medical history of CVA, hypothyroidism, GERD, hypertension, chronic back pain. Patient presented via EMS after her family noted her to be confused this afternoon. Metabolic encephalopathy thought to be secondary to anaplasmosis. #Metabolic encephalopathy/anaplasmosis/mild transaminitis No other sources of metabolic encephalopathy found at time of admission skin without erythema, UA negative, ammonia WNL, CXR negative. Head CT and AP CT negative. Continue IV doxy BID - last fever 11/16 PM Peripheral smear consistent with anaplasmosis. Further tick panel pending LFTs improving, tylenol added for pain #Muscle spasm/back pain - chronic on tizanidine, Celebrex and gabapentin, acutely exacerbated by recent heavy lifting and anaplasmosis above Mental status improved - tizanidine and gabapentin restarted Continue celebrex Supportive care: ice, Voltaren and Kpad prn #elevated troponin /Demeand ischemia Trop peaked at 20.8, no chest pain. No EKG changes #History CVAstable. Head CT negative. Continue aspirin, statin #HypothyroidismTSH stable. Continue levothyroxine #seasonal allergiesContinue home Claritin, nasal spray, inhaler #Hypertension Continue metoprolol #GERD Continue PPI #Hx of MILVIA - patient no longer uses CPap/BiPap. VTE ppx: SCDs, encourage ambulation Dispo: continued inpatient stay, treating anaplasmosis, awaiting PT/OT evals Offered to update pt family 11/17 and she declined. Admission and Anticipated Discharge Date Admission Date: November 17, 2024 Subjective Patient seen lying in bed, reports feeling not well. Having muscle aches and spasm. Reports taking tizandine at home with the occasional oxycodone. Usually does not need a walker, but asked her to get it because she was so weak on Saturday walks outside in the evenings does not recall a tick bite poor appetite, but excited about the tray that is coming for her lunch Review of Systems Review of Systems: All systems reviewed & are unremarkable except as noted in Subjective Physical Exam Physical Exam: General: NAD, VS as above, appears uncomfortable Resp: normal respiratory effort, lungs clear to auscultation CV: RRR, no murmur, Abd: normal bowel sounds, soft Extremities: Moves all extremities, no edema Neuro: A&O x3, Results & Data Results & Data Vital Signs (Past 12 Hours) Vital Signs Temp Pulse Pulse Resp BP BP Pulse Ox 11/17/24 07:50 98.4 F 75 20 130/53 L 94 11/17/24 02:17 98.2 F 83 20 144/74 H 95 11/17/24 01:00 79 18 154/67 H 97 11/17/24 00:00 100 H 17 148/67 H 92 11/16/24 23:00 98.8 F 77 17 148/66 H 92 O2 Del Method 11/17/24 07:50 Room Air 11/17/24 02:17 Room Air 11/17/24 01:00 Room Air 11/17/24 00:00 Room Air 11/16/24 23:00 Room Air Laboratory Results cbc and chemistry reviewed Troponin reviewed LFTs reviewed PG Care Time/CCT Total # of Minutes Spent Total Time Spent with Patient: Total time spent is greater than 50% in coordination of care (as documented) at patient's floor/unit and/or counseling patient: Coding Level of Care Code 81163 SUB INP/OBS CARE 3/50MIN Diagnoses Acute metabolic encephalopathy G93.41 Anaplasmosis A77.49 Transaminitis R74.01 Spasm of back muscles M62.830 Elevated troponin R79.89
[2024-11-17] MEDS: tiZANidine HCL 4 MG TABLET PO PRN ×2 (12:16→19:22)
[2024-11-17] MEDS: GABAPENTIN 300 MG CAP PO SCH (20:28)
[2024-11-17] MEDS: LORATADINE 10 MG TAB PO SCH (20:29)
[2024-11-17] MEDS: MELATONIN 3 MG TAB PO PRN (20:29)
[2024-11-17] MEDS: MoRPHine SULFATE 2 MG/ML CARP IV STA (23:42)
[2024-11-18 07:14] LABS: Hematocrit (blood only) 35.5 % (37.0-47.0); Mean Corpuscular Hemoglobin 30.8 pg (25.0-34.0); Mean Corpuscular Hgb Conc 33.8 g/dL (32.0-36.0); Mean Corpuscular Volume 91.3 fL (80.0-100.0); Mean Platelet Volume 10.4 fL (9.4-12.4); Platelet Count 101 K/uL (130-400); RDW Coefficient of Variation 13.1 % (11.5-14.5); RDW Standard Deviation 43.5 fL (36.4-46.3); Red Blood Count 3.89 M/uL (4.20-5.40); White Blood Count 2.24 K/ul (4.8-10.8)
[2024-11-18 07:29] LABS: Albumin Globulin Ratio 1.4 (0.9-2); BUN Creatinine Ratio 28.2 (10-20); Bilirubin,Total 0.6 mg/dl (0.2-1.0); Calcium 8.4 mg/dl (8.6-10.3); Creatinine Clr Calc Pharmacy 54.3 ml/min; Globulin 2.5 gm/dl (2.5-4.0); Total Protein 6.1 gm/dl (6.0-8.3)
[2024-11-18] MEDS: oxyCODONE HCL IR 5 MG TAB (IMMEDIATE RELEASE) PO STA (13:17)
--- NOTE | 2024-11-18 15:11 | Hospitalist Progress Note ---
Date of Service November 18, 2024 Assessment & Plan (1) Acute metabolic encephalopathy: (2) Anaplasmosis: (3) Transaminitis: (4) Spasm of back muscles: (5) Elevated troponin: Plan Patient is an 79-year-old female with past medical history of CVA, hypothyroidism, GERD, hypertension, chronic back pain. Patient presented via EMS after her family noted her to be confused this afternoon. Metabolic encephalopathy thought to be secondary to anaplasmosis. #Metabolic encephalopathy/anaplasmosis/mild transaminitis No other sources of metabolic encephalopathy found at time of admission skin without erythema, UA negative, ammonia WNL, CXR negative. Head CT and AP CT negative. Continue IV doxy BID - last fever 11/16 PM Peripheral smear consistent with anaplasmosis. Further tick panel pending LFTs increasing today, will continue to trend PT/OT - recommend home #Muscle spasm/back pain - chronic on tizanidine, Celebrex and gabapentin, acutely exacerbated by recent heavy lifting and anaplasmosis above Mental status improved - tizanidine 4mg TID and gabapentin restarted Continue celebrex Supportive care: ice, Voltaren and Kpad prn With worsening pain required IV morphine overnight and then did give one time dose of oxycodone this afternooon. It is unclear how often she is using narcotics at home, one rx for 12 pills on PDMP 6+ months ago but patient does travel to [place]. Concern for confusion with polypharmacy - tizandine dose decreased for sedation/confusion Daughter requesting pain management consult. #elevated troponin /Demeand ischemia Trop peaked at 20.8, no chest pain. No EKG changes #History CVAstable. Head CT negative. Continue aspirin, statin #HypothyroidismTSH stable. Continue levothyroxine #seasonal allergiesContinue home Claritin, nasal spray, inhaler #Hypertension Continue metoprolol #GERD Continue PPI #Hx of MILVIA - patient no longer uses CPap/BiPap. VTE ppx: SCDs, encourage ambulation Dispo: continued inpatient stay, working for pain control family updated at bedside 11/17 & 11/18 Admission and Anticipated Discharge Date Admission Date: November 16, 2024 Subjective Patient seen sitting up in the chair this morning - had minimal complaints this morning. was able to walk with therapy and felt like she is getting stronger Revisited this afternoon - patient appears very painful. at bedside and listing off multiple narcotics and asking why she cant have them. We discussed the concerns for confusion on admission from possible poly pharmacy. Still have not been able to clairfy how the 12 pills of oxycodone she was given in march have lasted as her and reports that she sometimes needs them m ultiple days in a row when she has spasms Review of Systems Review of Systems: All systems reviewed & are unremarkable except as noted in Subjective Physical Exam Physical Exam: General: NAD, VS as above, sitting up in the chair, Resp: normal respiratory effort, lungs clear to auscultation CV: RRR, no murmur, Abd: normal bowel sounds, soft Extremities: Moves all extremities, no edema Neuro: A&O x3, Results & Data Results & Data Vital Signs (Past 12 Hours) Vital Signs Temp Pulse Pulse Resp BP Pulse Ox O2 Del Method 11/18/24 14:45 98.6 F 74 16 156/78 H 94 Room Air 11/18/24 11:43 98.8 F 59 L 18 101/63 94 Room Air 11/18/24 07:22 97.9 F 60 19 162/75 H 94 Room Air Laboratory Results cbc and cmp reviewed PG Care Time/CCT Total # of Minutes Spent Total Time Spent with Patient: Total time spent is greater than 50% in coordination of care (as documented) at patient's floor/unit and/or counseling patient: Coding Level of Care Code 24714 SUB INP/OBS CARE 3/50MIN Diagnoses Acute metabolic encephalopathy G93.41 Anaplasmosis A77.49 Transaminitis R74.01 Spasm of back muscles M62.830 Elevated troponin R79.89
[2024-11-18 20:40] VITALS: TEMP 98.6
[2024-11-19 06:48] LABS: Hematocrit (blood only) 35.8 % (37.0-47.0); Hemoglobin 12.2 g/dl (12.0-16.0); Mean Corpuscular Hemoglobin 30.6 pg (25.0-34.0); Mean Corpuscular Hgb Conc 34.1 g/dL (32.0-36.0); Mean Corpuscular Volume 89.7 fL (80.0-100.0); Mean Platelet Volume 10.6 fL (9.4-12.4); Platelet Count 130 K/uL (130-400); RDW Coefficient of Variation 12.9 % (11.5-14.5); RDW Standard Deviation 42.5 fL (36.4-46.3); Red Blood Count 3.99 M/uL (4.20-5.40); White Blood Count 3.64 K/ul (4.8-10.8)
[2024-11-19 07:25] LABS: Albumin Globulin Ratio 1.4 (0.9-2); BUN Creatinine Ratio 25.4 (10-20); Bilirubin,Total 0.6 mg/dl (0.2-1.0); Creatinine Clr Calc Pharmacy 63.2 ml/min; Globulin 2.7 gm/dl (2.5-4.0); Potassium 3.9 mmol/L (3.5-5.1); Total Protein 6.4 gm/dl (6.0-8.3)
[2024-11-19 07:32] VITALS: BP 118/72; PULSE 54; RESP 16; O2SAT 92
[2024-11-19] MEDS ORDERED: KETOROLAC TROMETHAMINE 15 MG/ML VIAL IV PRN (08:31)
--- NOTE | 2024-11-19 08:34 | Pain Management Consultation ---
Date of Consultation November 19, 2024 Assessment & Plan (1) Spasm of back muscles: (2) Myofascial pain: (3) Chronic back pain: Plan 1. Patient's primary complaint appears to be associated with myofascial pain and muscular spasm which is a chronic episodic complaint similar in location and characteristic as prior. There appears to be a relationship with her twice per year episodes and her moving from [place] to [place] and then back likely associated with increased levels of activities. There is nothing to suggest intraspinal etiology at this time. Treatment options were discussed with the patient including but limited to a course of oral steroids, alternative muscle relaxer therapy, a trial of Toradol in an attempt to limit opiate utilization/perceived lack of efficacy and potential contributions to her altered mental status versus a trial of trigger point injections. 2. Will recommend a Medrol Dosepak-orders written 3. Recommend a trial of Toradol 15 mg IV every 6 hours as needed for breakthrough pain-orders written 4. Could consider transitioning tizanidine to baclofen although would recommend awaiting response to above 5. Would recommend judicious use of opiates. Could consider a trial of Nucynta 50 mg every 6 hours for as needed breakthrough pain should her pain be intractable without benefit from the above change in treatment pathway 6. Will add Lidoderm patch applied to the effected area-orders written Thank you for allowing us to participate in the care of Mrs. Olivera History of Present Illness Reason for Consultation: Thoracolumbar back pain Requesting Physician: Carley Hernandez PAC Attending Physician: Gurpreet Montano MD History of Present Illness Mrs. Olivera is an 79-year-old white female who was admitted with primary complaint of confusion. She has past medical history significant for CVA, hypothyroidism, GERD, hypertension and chronic back pain complaints. The patient reports that she was recently moving back from [place] to [place] for the summer and has been performing a lot of activities around the home. Significant back spasms which typically occur a few times per year. She felt that her pain was similar in location and characteristic as chronic episodes which began approximately 2 open 3 days prior to admission. She had reportedly utilized oxycodone and tizanidine prior to the admission which may have contributed to her confusion although she believes it was related to her fever. Patient indicates that she typically tolerates oxycodone and tizanidine without complication. She typically utilizes a few oxycodone and tizanidine tablets only a few times per year during her episodes of spasm per her report. Her pain is 100% axial in the mid thoracic and thoracolumbar region slightly right greater than left-sided. She describes the pain as episodic and sharp/stabbing in characteristic without radiation. She denies increased pain with deep breathing, coughing or sneezing. She denies lumbosacral back pain or lumbar radicular pattern to her pain. She has no lower extremity paresthesias. Patient reports that prior use of IV morphine during admission relieved her pain. Gabapentin and tizanidine was initially held upon this admission which was resumed with resolution of her confusion. Patient indicates that tizanidine is helpful at diminishing her symptoms which she did utilize early this morning lasting for 3-4 hours with use. 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 She denies any known tick attachment or tick bites. Patient denies pain traveling to the anterior chest wall in a radicular pattern. She has no known history of a recent rash. Patient denies bowel/bladder incontinence or saddle anesthesia. Patient has no further constitutional complaints. Plan of care discussed with Dr. Ebony Ramirez. Pain Assessment Full Body Front + Back: 2 1. Mid-lower thoracic and thoracolumbar junction axial back pain Pain scale - at its best (0-10): 2 Pain scale - at its worst (0-10): 8 Allergies Allergy/AdvReac Type Severity Reaction Status Date / Time No Known Allergies Allergy Verified 11/16/24 18:20 Home Medications Medication Instructions Recorded Confirmed Type acetaminophen 500 mg tablet 500 mg PO BID PRN fever/pain 01/19/19 11/16/24 History (Acetaminophen Extra Strength) ascorbic acid (vitamin C) 1,000 mg 1 g PO QAM 01/19/19 11/16/24 History tablet (Vitamin C) cyclosporine 0.05 % eye drops in a 1 drp OPB AMPM 01/19/19 11/16/24 History dropperette (Restasis) levothyroxine 100 mcg tablet 100 mcg PO DAILYBB 01/19/19 11/16/24 History loratadine 10 mg tablet 10 mg PO PM 01/19/19 11/16/24 History metoprolol succinate 25 mg 12.5 mg PO QPM 01/19/19 11/16/24 History tablet,extended release 24 hr omega-3 360 kg-mgn-zrm-fish oil 1 cap PO Q OTHER DAY 01/19/19 11/16/24 History 1,200 mg capsule,delayed release (Fish Oil) omeprazole 10 mg capsule,delayed 10 mg PO DAILYBB 01/30/19 11/16/24 History release calcium 600 mg (as 1 cap PO BID 01/11/21 11/16/24 History carbonate)-vitamin D3 12.5 mcg (500 unit) capsule (Calcium with Vit D3) celecoxib 200 mg capsule 200 mg PO PM 01/11/21 11/16/24 History mometasone 50 mcg/actuation nasal 2 spray intranasal DAILY 01/11/21 11/16/24 History spray valacyclovir 1 gram tablet 1,000 mg PO DIRECTED PRN Cold 01/11/21 11/16/24 History Sores aspirin 81 mg tablet,delayed 81 mg PO QPM 12/23/23 11/16/24 History release gabapentin 300 mg capsule 300 mg PO BID 12/23/23 11/16/24 History multivitamin 1 tab PO QPM 12/23/23 11/16/24 History rosuvastatin 5 mg tablet 5 mg PO DAILY 12/23/23 11/16/24 History Turmeric/Curcumin/Bioperine 2,000 mg PO QAM 11/16/24 11/16/24 History azelastine 137 mcg (0.1 %) nasal 2 spray intranasal BID 11/16/24 11/16/24 History spray flaxseed oil 1,000 mg capsule 1,000 mg PO QAM 11/16/24 11/16/24 History latanoprost 0.005 % eye drops 1 drp ophthalmic (eye) QPM 11/16/24 11/16/24 History montelukast 10 mg tablet 10 mg PO DAILY 11/16/24 11/16/24 History (Singulair) tizanidine 6 mg capsule 6 mg PRN Spasms 11/17/24 History Pain History Pain Intensity Pain scale - at its best (0-10): 2 Pain scale - at its worst (0-10): 8 Patient History Medical History Sinus bradycardia Lumbar spinal stenosis Ambulatory dysfunction Compression fracture of L2 Osteoarthritis Spinal stenosis Degenerative disc disease Chronic back pain GERD (gastroesophageal reflux disease) Hypothyroidism Anxiety Irregular heart rate reason metoprolol Sleep apnea doesnt use CPAP as ordered Surgical History History of section History of lumpectomy of right breast benign History of dilatation and curettage History of open reduction and internal fixation (ORIF) procedure clavicle fx--hardware removed History of total left hip replacement History of colonoscopy History of wisdom tooth extraction History of cardiac cath 2014 @ [place]--no stents Family History Other Family history not known due to adoption Social History Smoking Status: Never smoker Second Hand Exposure: No; Do You Dip or Chew Tobacco: No; Hx Alcohol Use: Yes Alcohol type: wine and hard liquor Hx Substance Use: No Preferred Language: [place] Communication Ability: Effective Correctional Officer Chief Required: No Beliefs That Will Affect Care: Restorationism Restorationism Beliefs: Protestant Current Living Situation: Family Feels Safe at Home: Yes Assistive Devices: None Physical Exam 2 Physical Exam: General: Patient sitting quietly in exam room in no acute distress. Speech and thought process appropriate. Mood and affect appropriate. Cognition intact. Patient was awake, alert and oriented to time person and place. Head: Normocephalic and atraumatic. ENT: No evidence of nasal or oral mucosal lesions. Mucous membranes are moist. Neck: Supple without adenopathy and full range of motion. Chest: Nontender to palpation of the costosternal junction. Nontender with AP/lateral compression of the chest wall. There is no focal rib or intercostal space tenderness. Abdomen: Soft and nondistended. No organomegaly. Bowel sounds active. Back/spine: Patient was able to logroll towards her left side for visual inspection and examination. Patient is nontender over the midline to palpation or percussion. There is no focal thoracic or lumbar facet joint tenderness. She is tender in the mid and lower thoracic paravertebral musculature slightly left greater than right sided. Minimal spasm was noted. No identifiable myoneural trigger points. No SI joint tenderness was appreciated. Nontender throughout the quadratus lumborum or gluteal musculature. Lower extremities: SLR negative bilaterally. Strength testing was 5/5 with dorsiflexion, plantarflexion, EHL testing and hip flexion/extension. Sensation was intact distally. No appreciable edema. Neurologic: Cranial nerves grossly intact. Ambulatory function not witnessed.
[2024-11-19] MEDS ORDERED: methylPREDNISolone 4 MG TAB, 6 DAY TAPER PO SCH (08:45)
[2024-11-19] MEDS: methylPREDNISolone 4 MG TAB PO SCH ×2 (09:28→12:58)
--- NOTE | 2024-11-19 10:18 | Discharge Summary ---
Discharge Summary Date of Service November 19, 2024 Principal Dx & Hospital Course #1 = Principal Diagnosis (1) Acute metabolic encephalopathy: (2) Anaplasmosis: (3) Transaminitis: (4) Spasm of back muscles: (5) Elevated troponin: Plan #Metabolic encephalopathy/anaplasmosis/mild transaminitis Patient is an 79-year-old female with past medical history of CVA, hypothyroidism, GERD, hypertension, chronic back pain. Patient presented via EMS after her family noted her to be confused this afternoon. Metabolic encephalopathy thought to be secondary to anaplasmosis and possible polypharmacy. Received IV doxcycyline, remained afebrile and converted to PO the day of discharge. Peripheral smear consistent with anaplasmosis. Further tick panel pending. LFTs stable/starting to downtrend. PT/OT recommend return home. #Muscle spasm/back pain - acutely exacerbated by recent heavy lifting and anaplasmosis above. Continue celebrex and gabapentin. Tizanidine dose reduced for confusion/sedations. Seen by pain management - recommend medrol dose pack, add lidocaine patch, continue tizanidine (but consider switching to baclofen outpatient) and Nucynta for breakthrough. Contiue supportive care with tylenol, ice, Voltaren and Kpad prn. Outpatient pain management follow up. #elevated troponin /Demeand ischemia - Trop peaked at 20.8, no chest pain. No EKG changes #History CVA Head CT negative. Continue aspirin, statin #HypothyroidismTSH stable. Continue levothyroxine #seasonal allergiesContinue home Claritin, nasal spray, inhaler #Hypertension Continue metoprolol #GERD Continue PPI #Hx of MILVIA - patient no longer uses CPap/BiPap. Dispo:discharge to home today family updated at bedside 11/17 & 11/18 Notes For Next Care Provider outpatient pain management follow up expanded tick panel pending Medication Changes From Visit tizanidine decreased to 4 mg prn nuctyna medrol dose pack Admission HPI Per Admitting Provider Patient is an 79-year-old female with past medical history of CVA, hypothyroidism, GERD, hypertension, chronic back pain. Patient presented via EMS after her family noted her to be confused this afternoon. Patient stated she has had significant back spasms and took an oxycodone this morning (only takes approximately every 6 months and no history of reaction). Cause of metabolic encephalopathy undetermined at time of admission, however differential includes but not limited to oxycodone side effect, tickborne illness, infection (however no signs of infection found on admission). Patient received 1 dose of Rocephin in the ED has metabolic encephalopathy thought to be secondary to infection - however UA negative, CXR negative, no signs of cellulitis. Patient seen at bedside. She is alert and oriented x 4, however does not remember being brought in by EMS. She stated on Saturday she had a republican so she took a muscle relaxer for her back spasms. Back spasms persisted through today so she took an oxycodone this morning. Noted in PDMP that patient had a prescription for 12 oxycodone falls 03/30, patient states she only needs them approximately every 6 months. She recently moved back from [place] and was lifting heavy things resulting in the back spasms. She denies any history of reaction with oxycodone before. She otherwise feels well, denies any dizziness, lightheadedness, rhinorrhea, congestion, cough, shortness of breath, chest pain, abdominal pain, dysuria, hematuria, numbness or tingling, erythema of skin. She stated she does sometimes have difficulty urinating due to her back pain, however no recent change, follows with urology. She denies any history of tick bites however goes on an evening walk everyday outside. She stated she has been compliant on her home medications, and is due for her evening medications. Of note - patient is [facility] PCP patient however [facility] [employer] [facility]. Discharge Exam General: NAD, VS as above, sitting up in bed, reading her book, appears comfortable. Resp: normal respiratory effort, lungs clear to auscultation CV: RRR, no murmur, Abd: normal bowel sounds, non tender,soft Extremities: Moves all extremities, no edema Neuro: A&O x3, Skin: intact, no lesions noted Discharge Plan Discharge Items Patient Disposition: Home - Self-Care Reason For Visit: METABOLIC ENCAPHALOPATHY,ANAPLASMOSIS,TRANSAMINITI Discharge Diagnosis: Anaplasmosis Condition on Discharge: Fair Activity: Resume your previous activity Activity Comment: use your walker as needed over the next few days/weeks Driving/Machine Use: No limitations Weightbearing: Full weightbearing Non-emergency contact: Primary Care Provider and Specialist Call non-emergency contact if: you have any medication questions, your symptoms worsen, your pain is worsening and your temperature is above 101 Follow-up/Referrals: Nolan Duenas PA-C [Physician Dairy Farm Manager] - (Follow up - pain management ) Caitlin Olivera MD [Primary Care Provider] - (follow up within one week ) Diet: Regular Addtl Attending Provider Instructions: Ms. Olivera, You were hospitalized after having weakness and confusion at home. This was from your anaplasmosis and medication use. Thankfully, your symptoms from anaplasmosis have started to improve. It is not uncommon for people to feel weak for 1-2 weeks after having this tick borne illness. You will be on doxycycline for 11.5 more days for a total of 14 day course. Please take this medicine with a full glass of water and avoid excessive sun exposure (you are more likely to burn while on this medication). You also had a flare of your chronic back pain. You were seen by pain management and they recommended a steroid dose pack, lidocaine patch, continuing the tizanidine for now and Nucynta for absolute breakthrough. Recommendations: - Please DISCARD the old tizanidine that you have at home and use the new prescription of 4mg pills. This may be changed in the future by pain management. - Continue Gabapentin - Continue medrol dose pack - follow instructions on the pack - Use lidocaine patches - please purchases these over the counter - Continue to use tylenol, heat and ice, voltaren cream as needed - I have sent in a few pills of Nucynta - this is to be used ONLY if there is 10/10 pain that cannot be controlled with all of the above options. This is called breakthrough pain. - Please follow up with pain management for further medication adjustments. You have blood cultures pending at the time of discharge, they are negative at 48 hours but take 5 days to get final results. If they turn positive you will be notified, you can also check in with your PCP or the [facility] portal. However, given your symptoms I do not expect they will be positive. Follow-up appointments: Make an appointment with your primary care physician within one week of discharge. A copy of this summary will be sent to them. Every time you see your primary care physician, or any other doctor, bring your medication list, and a list of questions. CONTACT YOUR PRIMARY CARE PROVIDER if you experience any of the following: Shortness of breath or difficulty breathing Fevers or chills Feeling tired with normal activity or experiencing dizziness or fainting Difficulty following your treatment plan, or difficulty taking medications CALL 911 OR GO TO THE EMERGENCY DEPARTMENT if you experience any of the following: Severe abdominal pain or nausea/vomiting Severe chest pain, or chest pain that radiates (moves) to your jaw or arm Sudden, severe shortness of breath or difficulty breathing Thank you for allowing us to participate in your care. Pending Studies at Discharge: Yes (blood cultures ) Stand-Alone Forms: My [facility], Smoking Cessation Medications and DC Order Prescriptions: New doxycycline hyclate 100 mg Capsule 100 mg PO BID 12 Days Qty: 23 0RF Rx Instructions: first dose PM 11/19 tizanidine 4 mg Tablet 4 mg PO TID PRN (Reason: muscle spasticity) 30 Days Qty: 60 0RF diclofenac sodium [Voltaren Arthritis Pain] 1 % Gel 4 g EXT QID PRN (Reason: back pain ) Qty: 50 0RF methylprednisolone [Medrol ([place])] 4 mg tablets,dose pack 4 mg PO DAILY Qty: 21 0RF Nucynta 50 mg tablet 50 mg PO Q6H PRN (Reason: breakthrough pain, severe) Qty: 12 0RF Continued rosuvastatin 5 mg tablet 5 mg PO DAILY gabapentin 300 mg capsule 300 mg PO BID aspirin 81 mg tablet,delayed release (DR/EC) 81 mg PO QPM multivitamin Tablet 1 tab PO QPM ascorbic acid (vitamin C) [Vitamin C] 1,000 mg Tablet 1 g PO QAM acetaminophen [Acetaminophen Extra Strength] 500 mg Tablet 500 mg PO BID PRN (Reason: fever/pain) levothyroxine 100 mcg Tablet 100 mcg PO DAILYBB metoprolol succinate 25 mg Tablet Extended Release 24 Hr 12.5 mg PO QPM loratadine 10 mg Tablet 10 mg PO PM cyclosporine [Restasis] 0.05 % Dropperette 1 drp OPB AMPM omega 8-[id number]-rnh-fish oil [Fish Oil] 360-1,200 mg Capsule,Delayed Release(Dr/Ec) 1 cap PO Q OTHER DAY Rx Instructions: TAKES QPM omeprazole 10 mg Capsule,Delayed Release(Dr/Ec) 10 mg PO DAILYBB celecoxib 200 mg capsule 200 mg PO PM valacyclovir 1 gram tablet 1,000 mg PO DIRECTED PRN (Reason: Cold Sores) mometasone 50 mcg/actuation spray,non-aerosol 2 spray INTRANASAL DAILY calcium carbonate-vitamin D3 [Calcium 600 with Vitamin D3] 600 mg(1,500mg) - 500 unit Capsule 1 cap PO BID latanoprost 0.005 % Drops 1 drp OPHTHALMIC (EYE) QPM flaxseed oil 1,000 mg Capsule 1,000 mg PO QAM Rx Instructions: administer with a meal montelukast [Singulair] 10 mg Tablet 10 mg PO DAILY azelastine 137 mcg (0.1 %) [place],Non-Aerosol 2 spray INTRANASAL BID Rx Instructions: administer into each nostril Turmeric/Curcumin/Bioperine 2,000 mg PO QAM Discontinued tizanidine 6 mg capsule 6 mg PRN (Reason: Spasms) Discharge Orders: Discharge Order (Routine); Ordered 11/19/24 Ordered By: Carley Cortez/Other Patient Handouts: Anaplasmosis, ED Chronic Pain Admission Data Admit Date/Time: 11/16/24 22:59 Attending Provider: Gurpreet Montano Admit Provider: Lucius Mosqueda Primary Care Provider: Caitlin Olivera Other Providers: Lucius Mosqueda; Quintin Carbajal Hospital Stay Data Consultations 11/16/24 21:17 ED Decision to Admit Stat 11/18/24 17:07 Consult Pain Management Routine Diagnostic Imagining Performed Chest X-Ray 11/16/24 17:21 INDICATION: Chest pain. TECHNIQUE: Frontal radiograph of the chest. COMPARISON: Radiograph from 12/23/2023. FINDINGS: Cardiomegaly. Mild pulmonary vascular congestion. No infiltrate, pleural effusion or pneumothorax. No acute osseous abnormality evident. IMPRESSION: Mild pulmonary vascular congestion. Electronically signed by Lion Castillo 11-16-2024 5:47 PM Abdomen/Pelvis CT 11/16/24 17:40 CT ABDOMEN and PELVIS with INTRAVENOUS CONTRAST HISTORY: Abdominal pain TECHNIQUE: CT abdomen and pelvis with contrast. IV CONTRAST: 100 mL of OMNIPAQUE 300 ENTERIC CONTRAST: Not Given COMPARISON: FINDINGS: LOWER CHEST: Pectus excavatum with inwardly deviating xiphoid process exerting mass effect upon the anterior heart. Small pleural fluid and bibasilar atelectasis. LIVER: No focal lesion identified. GALLBLADDER/BILIARY: Unremarkable gallbladder. No abnormal biliary dilatation. SPLEEN: Unremarkable. PANCREAS: Unremarkable. ADRENALS: Unremarkable. KIDNEYS: Small cortical cysts and renal scarring. No nephrolithiasis or hydronephrosis.. No stones or hydronephrosis identified. PERITONEUM/RETROPERITONEUM. No lymphadenopathy by size criteria. No aortic aneurysm. GASTROINTESTINAL: No obstruction. Normal appendix is identified. Mild gastric wall thickening and mild wall thickening of multiple loops of small bowel with mild fluid distention. REPRODUCTIVE: No suspicious pelvic mass identified. URINARY BLADDER: Mild circumferential wall thickening BONES: No acute findings. Left hip arthroplasty. IMPRESSION: Mild gastroenteritis suggested. Normal appendix is identified. Mild wall thickening of the urinary bladder could be due to cystitis. Please correlate with urinalysis. Electronically signed by Jose Coello 11-16-2024 9:[address] 11/16/24 17:40 CT HEAD: HISTORY: Altered mental status TECHNIQUE: Noncontrast CT examination of the head is performed. Coronal and sagittal reformats were created. COMPARISON: None FINDINGS: There is no evidence of intracranial hemorrhage, focal mass effect or midline shift. No fluid collection is identified. The ventricular system is midline and symmetric. No evidence of acute major vascular territory infarction. Encephalomalacia of the right cerebellum. The chronic white matter ischemic changes. No calvarial fracture is identified. Right frontal geoff hole. The paranasal sinuses and mastoids are well aerated. IMPRESSION: No acute intracranial process identified. Chronic findings as above. Electronically signed by Jose Coello 11-16-2024 9:00 PM Pending Results Patient Have Any Pending Studies at Discharge: Yes (blood cultures ) Discharge Instructions Given to Patient (Per Discharging Provider) Ms. Olivera, You were hospitalized after having weakness and confusion at home. This was from your anaplasmosis and medication use. Thankfully, your symptoms from anaplasmosis have started to improve. It is not uncommon for people to feel weak for 1-2 weeks after having this tick borne illness. You will be on doxycycline for 11.5 more days for a total of 14 day course. Please take this medicine with a full glass of water and avoid excessive sun exposure (you are more likely to burn while on this medication). You also had a flare of your chronic back pain. You were seen by pain management and they recommended a steroid dose pack, lidocaine patch, continuing the tizanidine for now and Nucynta for absolute breakthrough. Recommendations: - Please DISCARD the old tizanidine that you have at home and use the new prescription of 4mg pills. This may be changed in the future by pain management. - Continue Gabapentin - Continue medrol dose pack - follow instructions on the pack - Use lidocaine patches - please purchases these over the counter - Continue to use tylenol, heat and ice, voltaren cream as needed - I have sent in a few pills of Nucynta - this is to be used ONLY if there is 10/10 pain that cannot be controlled with all of the above options. This is called breakthrough pain. - Please follow up with pain management for further medication adjustments. You have blood cultures pending at the time of discharge, they are negative at 48 hours but take 5 days to get final results. If they turn positive you will be notified, you can also check in with your PCP or the [facility] portal. However, given your symptoms I do not expect they will be positive. Follow-up appointments: Make an appointment with your primary care physician within one week of discharge. A copy of this summary will be sent to them. Every time you see your primary care physician, or any other doctor, bring your medication list, and a list of questions. CONTACT YOUR PRIMARY CARE PROVIDER if you experience any of the following: Shortness of breath or difficulty breathing Fevers or chills Feeling tired with normal activity or experiencing dizziness or fainting Difficulty following your treatment plan, or difficulty taking medications CALL 911 OR GO TO THE EMERGENCY DEPARTMENT if you experience any of the following: Severe abdominal pain or nausea/vomiting Severe chest pain, or chest pain that radiates (moves) to your jaw or arm Sudden, severe shortness of breath or difficulty breathing Thank you for allowing us to participate in your care. Total Time Total Time Spent Total Time Spent (In Minutes): Time spent day of discharge 35 minutes including direct patient care, medication reconciliation, documentation, review of labs and images, and coordination of care. Coding Level of Care Code 72342 INP/OBS DISCH >30 MIN Diagnoses Acute metabolic encephalopathy G93.41 Anaplasmosis A77.49 Transaminitis R74.01 Spasm of back muscles M62.830 Elevated troponin R79.89
[2024-11-19] MEDS: DOXYCYCLINE HYCLATE 100 MG CAP PO SCH (11:01)
[2024-11-19] MEDS: LIDOCAINE 5% 1 PATCH TD STA (11:01)
--- NOTE | 2024-11-19 11:22 | Electrocardiogram Report ---
Test Reason : Blood Pressure : */* mmHG Vent. Rate : 84 BPM Atrial Rate : 84 BPM P-R Int : 194 ms QRS Dur : 86 ms QT Int : 374 ms P-R-T Axes : 71 -43 46 degrees QTcB Int : 441 ms Normal sinus rhythm Left axis deviation Septal infarct (cited on or before 11-Jan-2021) Abnormal ECG When compared with ECG of 16-Nov-2024 17:17, No significant change was found Confirmed by Masoud Holly ([id number]) on 11/19/2024 11:21:42 AM Referred By: REFERRED SELF Confirmed By: Masoud Holly
[2024-11-20] MEDS ORDERED: methylPREDNISolone 4 MG TAB PO SCH ×2 (07:00→21:00)
[2024-11-20 23:42] LABS: Borrelia miyamotoi DNA Not Detected (Not Detected); Borrelia miyamotoi Source WHOLE BLOOD
[2024-11-21] MEDS ORDERED: methylPREDNISolone 4 MG TAB PO SCH (07:00)
[2024-11-22] MEDS ORDERED: methylPREDNISolone 4 MG TAB PO SCH (07:00)
[2024-11-23] MEDS ORDERED: methylPREDNISolone 4 MG TAB PO SCH (07:00)
[2024-11-24] MEDS ORDERED: methylPREDNISolone 4 MG TAB PO SCH (07:00)
[2024-11-26 19:33] LABS: Babesia microti DNA Not Detected (Not Detected); Borrelia miyamotoi DNA Not Detected (Not Detected); Borrelia miyamotoi IgG Ab 0.17 INDEX; Borrelia miyamotoi IgM Ab 0.09 INDEX; Borrelia miyamotoi Source WHOLE BLOOD; Q Fever IgG, Phase I NEGATIVE; Q Fever Phase I IgM Antibody NEGATIVE; Q Fever Phase II IgG Antibody NEGATIVE; Q Fever Phase II IgM Antibody NEGATIVE; R. typhi IgG Ab NOT DETECTED; R. typhi IgM Ab NOT DETECTED; RMSF IgG Ab NOT DETECTED; RMSF IgM Ab NOT DETECTED
== END 2024-11-19 13:23 | disposition home or self-care (01) | DRG 867 ==
LOC: ED 17:06 → SUATTDRO 22:59 → INTOOBSV 22:59 → SUATTDRO 11-17 → 3W 11-17